=== PATIENT | female | born 1945 | race Caucasian/White ===

== ENCOUNTER → 2018-07-11 11:54 | Outpatient (CLI) | payer MEDICARE, SELFPAY ==
--- NOTE | 2018-07-11 11:58 | BI_ITS ---
MAMMOGRAPHY - BILATERAL SCREENING REASON FOR EXAM: Female, 72 years old. Routine annual screening examination. PERTINENT HISTORY: Non-contributory. Remote left breast aspiration. TECHNIQUE: Digital bilateral breast lynn (3D mammographic acquisition) in the CC and MLO projections. 2-D mediolateral oblique (MLO) and craniocaudad (CC) views of both breasts were obtained. CAD: Full Field Digital Mammography with Computer Added Detection was performed. COMPARISON: Comparison is made with prior study dated June 05, 2017 and May 08, 2016. FINDINGS: Breast Composition: The breasts are heterogeneously dense, which may obscure small masses. There are no dominant masses or suspicious calcifications. Scattered bilateral microcalcifications. Stable bilateral benign-appearing axillary lymph nodes. No other significant abnormalities are identified. There has been no significant change since the prior study. BI/SCREENING MAMM (CAD), BILAT IMPRESSION: Stable bilateral screening mammogram. Yearly follow-up mammogram recommended. (A) ASSESSMENT CATEGORY: BIRADS Category 2: Benign. A letter regarding these results will be sent to the patient by the facility within 30 days. Approximately 10% of breast cancers are not detected by mammography. A normal mammogram should not delay biopsy of a clinically suspicious abnormality. [id number] Electronically Signed: Angelo Lonoey MD at 14:22 EST Tel [phone], Service support ,
== END ==
PROVIDERS: Family Provider Internal Medicine; PCP Internal Medicine; Referring Provider Internal Medicine; Visit Provider Internal Medicine
DX: Z12.31 Encounter for screening mammogram for malignant neoplasm of breast (principal)
CPT/HCPCS: 77063; 77067

== ENCOUNTER → 2018-07-30 12:21 | Outpatient (CLI) | payer SELFPAY ==
--- NOTE | 2018-07-30 12:25 | CT_ITS ---
STUDY: CT CHEST WITHOUT CONTRAST REASON FOR EXAM: Female, 72 years old. Calcium scoring examination. Hyperlipidemia. This is a radiological over read examination. RADIATION DOSAGE (If Supplied By Facility): CTDIvol = ( 12.19 ) mGy, DLP = ( 195.04 ) mGycm TECHNIQUE: Transaxial imaging was performed without the administration of intravenous contrast material. Individualized dose optimization techniques were used for this CT. COMPARISON: None. FINDINGS: Mild degree of emphysematous changes. There is no demonstrated pleural abnormality. There are calcifications of the coronary arteries. There are multiple small lymph nodes within the mediastinum, which are normal in size and morphology most compatible with reactive lymph hyperplasia. Normal hilar regions. Normal unenhanced pulmonary arteries. There is atherosclerotic calcification of the aortic arch and descending thoracic aorta. There are mild degenerative changes of the thoracic spine. There is no demonstrated abnormality of the visualized upper abdomen. CT/CCTA Calcium Scoring IMPRESSION: Coronary artery calcification. No acute abnormality is seen. Electronically Signed: Angelo Looney MD at 8:48 EST , Service support ,
--- NOTE | 2018-07-30 12:25 | CT_ITS ---
STUDY: CT CHEST WITHOUT CONTRAST REASON FOR EXAM: Female, 72 years old. Calcium scoring examination. Hyperlipidemia. This is a radiological over read examination. RADIATION DOSAGE (If Supplied By Facility): CTDIvol = ( 12.19 ) mGy, DLP = ( 195.04 ) mGycm TECHNIQUE: Transaxial imaging was performed without the administration of intravenous contrast material. Individualized dose optimization techniques were used for this CT. COMPARISON: None. FINDINGS: Mild degree of emphysematous changes. There is no demonstrated pleural abnormality. There are calcifications of the coronary arteries. There are multiple small lymph nodes within the mediastinum, which are normal in size and morphology most compatible with reactive lymph hyperplasia. Normal hilar regions. Normal unenhanced pulmonary arteries. There is atherosclerotic calcification of the aortic arch and descending thoracic aorta. There are mild degenerative changes of the thoracic spine. There is no demonstrated abnormality of the visualized upper abdomen. CT/Limited Chest CT w/CCTA IMPRESSION: Coronary artery calcification. No acute abnormality is seen. Electronically Signed: Angelo Looney MD at 8:48 EST , Service support ,
--- NOTE | 2018-07-30 13:00 | CA.SCORE ---
Calcium Scoring Date of Study:: 07/30/18 Coronary Calcium Scoring: Coronary calcium scoring. High-resolution computed tomographic imaging of the chest was performed on 07/30/2018 with particular attention paid to the coronary arteries. Images from the examination were analyzed for the presence and extent of coronary artery calcification using coronary calcification quantification software. The patient tolerated the procedure well and there were no complications. The results of the coronary calcification analysis are provided below. Coronary artery Left main 72.3. Left anterior descending artery 0 Left circumflex artery 83.4 Right coronary artery 0 Total Agagston score 156 The above [address] the patient between the 50th and 75th percentile ranking for age-matched controls. It is suggestive of moderate nonobstructive coronary disease likely.
== END ==
PROVIDERS: Family Provider Internal Medicine; PCP Internal Medicine; Referring Provider Internal Medicine; Visit Provider Internal Medicine
DX: E78.00 Pure hypercholesterolemia, unspecified (principal)
CPT/HCPCS: 75571; 76380

== ENCOUNTER 2018-08-23 12:36 | Emergency (ER) | payer MEDICARE, SELFPAY ==
[2018-08-23 12:38] VITALS: BP 211/89; PULSE 73; RESP 17; TEMP 36.4; O2SAT 99; BMI 29.4
[2018-08-23 12:45] VITALS: BP 209/74
[2018-08-23 12:50] LABS: Bedside Glucose 147 mg/dL (70-110)
--- NOTE | 2018-08-23 13:06 | EKG12_ITS ---
Test Reason : NEURO S/SX Blood Pressure : / mmHG Vent. Rate : 067 BPM Atrial Rate : 067 BPM P-R Int : 160 ms QRS Dur : 102 ms QT Int : 408 ms P-R-T Axes : 021 000 063 degrees QTc Int : 431 ms Sinus rhythm with Premature supraventricular complexes Left ventricular hypertrophy with repolarization abnormality Abnormal ECG Confirmed by MELI WHEATLEY, OPAL ([id number]), book editor PATRICIO MOSLEY ([id number]) on 08/26/2018 4:50:23 PM Referred By: RUDOLPH/KALLIE Confirmed By:OPAL GARRISON MD
[2018-08-23 13:37] LABS: Absolute Lymphocyte Count 1.24 X10^3/ul (0.83-4.51); Absolute Neutrophil Count 3.8 X10^3/uL (2.0-7.7); Basophil# 0.06 X10^3/uL; Basophil% 0.9 % (0-1); Eosinophil# 0.64 X10^3/uL; Hematocrit 39.8 % (37-47); Hemoglobin 13.1 g/dl (12.0-15.0); Lymphocyte # 1.24 X10^3/ul (4.0); Lymphocyte % 19.3 % (19-41); Mean Corp Hgb Conc 32.9 g/gl (32-36); Mean Corpuscular Hgb 29.7 pg (27.0-32.0); Mean Corpuscular Volume 90.2 fL (81-99); Mean Platelet Vol. 9.8 fl (6.2-12.0); Monocyte# 0.71 X10^3/uL; Monocyte% 11.1 % (0-10); Neutrophil # 3.76 X10^3/uL (2.7-7.7); Neutrophil % 58.5 % (47-70); POSITIVE COUNT NO; POSITIVE DIFFERENTIAL NO; POSITIVE MORPHOLOGY NO; Platelet Count 306 K/mm3 (150-450); RBC Distribution Width CV 13.3 % (11.6-14.6); RBC Distribution Width SD 43.7 fl (35.1-43.9); Red Blood Count 4.41 M/mm3 (4.2-5.4); White Blood Count 6.4 K/mm3 (4.4-11.0)
[2018-08-23 13:38] LABS: Anion Gap 8 (5-15); BUN 13 mg/dL (7-18); BUN/Creat Ratio 12.1 RATIO (10-20); Calcium,Total 8.9 mg/dL (8.5-10.1); Chloride 100 mmol/L (98-107); Creatinine, Serum 1.07 mg/dL (0.55-1.02); EST Glomerular Filtration Rate 54 mL/min (>60); Est Glom Filt Rate - Afr Amer 65 mL/min (>60); Estimated Creatinine Clearance 43.39 ml/min; Glucose 135 mg/dL (74-106); Potassium 3.4 mmol/L (3.5-5.1); Sodium Level 133 mmol/L (136-145)
[2018-08-23 13:43] VITALS: BP 158/99; PULSE 61; RESP 17; O2SAT 99
--- NOTE | 2018-08-23 14:54 | ED.DCSUM_ITS ---
- ER Visit Summary Date of Service: 08/23/18 Chief Complaint: Paresthesias History of Present Illness: The patient is a 72 F who states that about 20 minutes prior to arrival she was sitting in a car drinking a pop consisting of diet and regular pop when she felt like her tongue began to feel like it was nu mb. She states that then she developed symptoms similar to being anesthetized at the dentist along the bilateral jawline. Then her bilateral arms began to feel heavy. She states that since arriving here in the department she is feeling better. Denies any fever she denies any visual changes. She denies any headache or weakness. Recently diagnosed with UTI this week and started on Macrobid and then was changed to Cipro. She states that she is on day 3 of the Cipro. She notes that she is on lisinopril. She denies any swelling of the lips or tongue. No dysarthria noted by . Physical Examination: Afebrile noted hypertension of 209/74 Gen: Well-nourished well-developed Head: Normocephalic atraumatic Eyes: Perrl EOMI ENT: TMs clear no rhinorrhea moist mucous membranes Neck: Supple no lymphadenopathy no JVD nontender CVS: Regular rate rhythm no murmurs normal S1-S2 Respiratory: No distress clear to auscultation bilaterally chest nontender Abdomen: Soft nontender nondistended normal bowel sounds no masses Back: Nontender Extremity: Nontender no edema Skin: Normal color no rash Neuro: alert orientated ?3 CN II-XII intact normal strength sensation reflexes gait cerebellar Psych: Normal affect normal mood Test Results: CBC and BMP were essentially negative. Emergency Department Course and Treatment: Patient was observed in the department. Her blood pressure is steadily come down currently 154/79. Her symptoms are resolved. This could possibly been hypertensive related. We talked about the possibility of lisinopril induced angioedema though at this time she has no swelling. She will follow-up with her doctor return if worsening or concerns. Impression: 1. Facial paresthesias 2. Hypertension This note was generated with [employer] dictation software. It may contain incorrect words, spelling, and punctuation that were not noted in review of the chart prior to signing ED Disposition - Plan for ED Patient: Disposition: Home or Assisted Living Instructions: ED Paraesthesias Referrals: Bonezzi,Aleena, MD [Primary Care Provider] - 3-5 Days Additional Instructions: Please monitor your blood pressure. Monitor for any lip or tongue swelling Return if worsening or concerns.
[2018-08-23 15:04] VITALS: BP 159/71; PULSE 74; RESP 16; O2SAT 98
== END 2018-08-23 15:04 | disposition home or self-care (01) ==
PROVIDERS: Emergency Provider Emergency Medicine; Family Provider Internal Medicine; PCP Internal Medicine
DX: R20.2 Paresthesia of skin (principal); I10 Essential (primary) hypertension
CPT/HCPCS: 80048; 82962; 85025; 93005; 99284; A4216

== ENCOUNTER → 2018-09-02 09:52 | Outpatient (CLI) | payer MEDICARE, SELFPAY ==
[2018-08-23 12:38] VITALS: BMI 29.4
--- NOTE | 2018-09-02 09:58 | RDU_ITS ---
Reason For Study: HYPERTENSION Right Renal Artery Left Renal Artery Right renal artery ostium 144/31.8 Left renal artery ostium 116.0/20.1 RSV/EDV. PSV/EDV. Right renal artery proximal Left renal artery proximal PSV/EDV 122/32.0 PSV/EDV. 138.0/29.2 . Right renal artery mid 137.0/27.9 Left renal artery mid 125.0/21.0 PSV/EDV. PSV/EDV . Right renal artery distal Left renal artery distal 107.0/23.2 118.0/32.8 PSV/EDV. PSV/EDV. Right RAR 1.9. Left RAR 1.8. Right Renal Parenchyma Left Renal Parenchyma Upper Pole Medula 37.4/11.4 Left upper pole medulla 39.2/10.0 PSV/EDV. PSV/EDV . Right upper pole medulla EDR .30 . Left upper pole medulla EDR .26 . Right upper pole medulla R.I. .70 . Left upper pole medulla R.I. .74 . Upper Jeffrey Cortx 24.8/7.0 PSV/EDV. UP Cortex 23.7/7.8 PSV/EDV. Right upper pole cortex EDR .28 . Left upper pole cortex EDR .33 . Right upper pole cortex R.I. .72 . Left upper pole cortex R.I. .67 . Right lower Pole medulla 35.4/9.5 Left lower Pole medulla 38.8/11.9 PSV/EDV . PSV/EDV . Right lower pole medulla EDR .27 . Left lower pole medulla EDR .31 . Right lower pole medulla R.I. .73 . Left lower pole medulla R.I. .69 . Lower Pole Cortex 18.0/6.1 PSV/EDV. Lower Pole Cortx 27.4/9.1 PSV/EDV. Right lower pole cortex EDR .34 . Left lower pole cortex EDR .33 . Right lower pole cortex R.I. .66 . Left lower pole cortex R.I. .67 . Right Renal Hilar Left Renal Hilar Right Hilar avg 62.9/14.6 PSV/EDV. LT Hilar avg 70.7/13.2 PSV/EDV . Right hilar acceleration time 66 Left hilar acceleration time 51 m/sec. m/sec. Right Renal Dimensions Left Renal Dimensions Right kidney size 10.0 cm . Left kidney size 10.5 cm . Right cortical dimension 1.5 cm . Left cortical dimension 1.5 cm . Aorta Proximal abdominal aorta 1.7 X 1.6 cm . Distal abdominal aorta 1.3 X 1.3 cm . Proximal abdominal aorta peak systolic velocity is 75.7 cm/sec . Distal abdominal aorta peak systolic velocity is 71.1 cm/sec . Interpretation Summary Dimensions of the intra-abdominal aorta appear normal, without evidence of aneurysmal dilatation. Renal artery velocities are bilaterally normal. Acceleration times are normal bilaterally. Renal- aortic ratios are also bilaterally normal. There is no evidence of hemodynamically significant renal artery stenosis on either side. Cortical dimensions are bilaterally normal. Kidneys appear normal in size bilaterally. Ordering Physician: Aleena Barreto Referring Physician: Aleena Barreto Performed By: Dolly Gonzalez RVT
== END ==
PROVIDERS: Family Provider Internal Medicine; PCP Internal Medicine; Referring Provider Internal Medicine; Visit Provider Internal Medicine
DX: I10 Essential (primary) hypertension (principal)
CPT/HCPCS: 93975

== ENCOUNTER → 2019-05-22 11:34 | Outpatient (CLI) | payer MEDICARE, SELFPAY ==
--- NOTE | 2019-05-22 11:37 | RAD_ITS ---
STUDY: X-RAY - PELVIS AND BILATERAL HIPS REASON FOR EXAM: Female, 73 years old. Bilateral hip pain. TECHNIQUE: AP view of the pelvis.? 2 views of the right hip, and 2 views of the left hip were obtained. COMPARISON: None. FINDINGS: There is a non-specific bowel gas pattern. Normal visualized soft tissue structures. There is narrowing with cortical sclerosis and osteophyte formation of the sacroiliac joint consistent with mild degenerative osteoarthritic changes. Normal bilateral superior and inferior pubic rami. There are degenerative changes of the pubic symphysis with articular narrowing and sclerosis. Normal bilateral ischial tuberosities. There are mild osteoarthritic changes of the right femoral head with marginal osteophyte formation. There is osteoarthritic spur formation of the right acetabular rim. There is moderate articular joint space narrowing of the right hip. There are osteoarthritic changes of the left femoral head with marginal osteophyte formation. There is osteoarthritic spur formation of the left acetabular rim. There is moderate articular joint space narrowing of the left hip. RAD/Hips B/L min 2 views w/ Pelvis IMPRESSION: Multilevel degenerative disease as described above with no acute fracture or subluxation. Electronically Signed: Mabel Gonzales MD at 6:47 EST , Service support ,
== END ==
PROVIDERS: Family Provider Internal Medicine; PCP Internal Medicine; Referring Provider Internal Medicine; Visit Provider Internal Medicine
DX: M25.551 Pain in right hip (principal)
CPT/HCPCS: 73521

== ENCOUNTER → 2019-06-19 10:57 | Outpatient (CLI) | payer MEDICARE, SELFPAY ==
--- NOTE | 2019-06-19 11:02 | RAD_ITS ---
STUDY: X-RAY - ABDOMEN/PELVIS REASON FOR EXAM: Female, 73 years old. RUQ PAIN, CONSTIPATION TECHNIQUE: Single AP view of the abdomen / pelvis. COMPARISON: None. FINDINGS: Excluded lung bases. No dilated loops of air-filled small bowel. Mild fecal retention of the right and transverse colon. There is no demonstrated free abdominal air. The visualized liver, spleen and kidneys are grossly normal in size and morphology. Normal soft tissue structures. There mild degenerative changes of the hips. RAD/Abdomen Single View IMPRESSION: 1. Nonobstructive bowel gas pattern. 2. Mild fecal retention of the proximal colon. 3. Degenerative changes of the bilateral hips. Electronically Signed: Vineet Escobar MD (Brooks) at 12:04 EST , Service support ,
[2019-06-19 11:57] LABS: Absolute Neutrophil Count 4.4 X10^3/uL (2.0-7.7); Basophil# 0.05 X10^3/uL; Basophil% 0.7 % (0-1); Eosinophil# 0.23 X10^3/uL; Eosinophils% 3.3 % (0-5); Hematocrit 38.8 % (37-47); Lymphocyte % 25.8 % (19-41); Mean Corp Hgb Conc 33.5 g/dL (32-36); Mean Corpuscular Hgb 30.4 pg (27.0-32.0); Mean Corpuscular Volume 90.9 fL (81-99); Mean Platelet Vol. 9.8 fl (6.2-12.0); Monocyte# 0.53 X10^3/uL; Monocyte% 7.6 % (0-10); NRBC Flagged by Analyzer 0 % (0-5); Neutrophil # 4.36 X10^3/uL (2.7-7.7); Neutrophil % 62.3 % (47-70); Platelet Count 318 K/mm3 (150-450); RBC Distribution Width CV 12.6 % (11.6-14.6); RBC Distribution Width SD 41.9 fl (35.1-43.9); Red Blood Count 4.27 M/mm3 (4.2-5.4)
[2019-06-19 12:20] LABS: ALB/GLOB Ratio 1.1 RATIO (0.9-2.4); AST(SGOT) 20 U/L (15-37); Alanine Aminotransfer ALT/SGPT 19 U/L (13-56); Albumin, Serum 3.8 g/dL (3.2-5.0); Alkaline Phosphatase 107 U/L (45-117); Amylase 79 U/L (25-115); Anion Gap 5 (5-15); BUN 16 mg/dL (7-18); BUN/Creat Ratio 15.8 RATIO (10-20); Calcium,Total 9.2 mg/dL (8.5-10.1); Chloride 104 mmol/L (98-107); Creatinine, Serum 1.01 mg/dL (0.55-1.02); EST Glomerular Filtration Rate 57 mL/min (>60); Est Glom Filt Rate - Afr Amer 69 mL/min (>60); Globulin 3.5 g/dL (2.2-4.2); Glucose 101 mg/dL (74-106); Lipase 129 U/L (73-393); Potassium 4.2 mmol/L (3.5-5.1); Protein, Total 7.3 g/dL (6.4-8.2); Sodium Level 138 mmol/L (136-145)
== END ==
PROVIDERS: Family Provider Internal Medicine; PCP Internal Medicine; Referring Provider Internal Medicine; Visit Provider Internal Medicine
DX: R10.11 Right upper quadrant pain (principal)
CPT/HCPCS: 74018; 80053; 82150; 83690; 85025

== ENCOUNTER → 2019-07-14 10:24 | Outpatient (CLI) | payer MEDICARE, SELFPAY ==
--- NOTE | 2019-07-14 10:29 | BI_ITS ---
MAMMOGRAPHY - BILATERAL SCREENING REASON FOR EXAM: Female, 73 years old. Routine annual screening examination. PERTINENT HISTORY: Non-contributory. TECHNIQUE: Digital bilateral breast betty (3D mammographic acquisition) in the CC and MLO projections. 2-D mediolateral oblique (MLO) and craniocaudad (CC) views of both breasts were obtained. CAD: Full Field Digital Mammography with Computer Added Detection was performed. COMPARISON: Comparison is made with prior study dated July 11, 2018 and June 05, 2017. FINDINGS: Breast Composition: The breasts are heterogeneously dense, which may obscure small masses. There are no dominant masses or suspicious calcifications. Stable bilateral scattered calcifications. Stable benign appearing bilateral axillary lymph nodes. No other significant abnormalities are identified. There has been no significant change since the prior study. BI/SCREEN MAMM (CAD) W/BETTY BILAT IMPRESSION: Stable bilateral screening mammogram. Yearly follow-up mammogram recommended. (A) ASSESSMENT CATEGORY: BIRADS Category 2: Benign. A letter regarding these results will be sent to the patient by the facility within 30 days. Approximately 10% of breast cancers are not detected by mammography. A normal mammogram should not delay biopsy of a clinically suspicious abnormality. [id number] Electronically Signed: Angelo Looney, at 12:32 EST , Service support ,
--- NOTE | 2019-07-14 10:31 | BD_ITS ---
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 COMPARISON: Comparison is made with prior examination dated December 13, 2016. FINDINGS: Lumbar Spine (L1-L4): g/cm2 (0.973) / T-score (-1.6) / Z-score (0.1) Findings are suggestive of osteopenia with a moderate fracture risk. Left Femur Total: g/cm2 (0.791) / T-score (-1.7) / Z-score (-0.1) Left Femoral Neck: g/cm2 (0.796) / T-score (-1.7) / Z-score (0.1) Right Femur Total: g/cm2 (0.842) / T-score (-1.3) / Z-score (0.3) Right Femoral Neck: g/cm2 (0.881) / T-score (-1.1) / Z-score (0.7) The T-Scores on the most recent prior examination were: Lumbar Spine (L1-L4): There has been worsening of bone density since the previous examination. Left Femur Total: which represents a worsening of 4.4%. Right Femur Total: which represents a worsening of 1.5%. BD/Dexa Bone Density Study IMPRESSION: The patient is considered osteopenic as outlined below according to World [employer] Organization (WHO) criteria with a moderate fracture risk. There has been worsening of bone density since the previous examination. Reference Information: The T-score is the number of standard deviations above or below the standard which is normal for young adults at their peak bone mineral density. The World Health Organization (WHO) interprets the T-scores as follows: Above -1 Normal bone density Between -1 and -2.5 Osteopenia Equal to / or below -2.5 Osteoporosis As a practical clinical guideline, osteopenia may be graded as follows: Mild -1 through -1.5 Moderate -1.6 through -2.0 Severe -2.1 through -2.4 The Z-score is the number of standard deviations above or below age-matched controls. A Z-score of less than -1.5 would be considered abnormal. References: 1. NIH Osteoporosis and Related Bone Diseases http://www.osteo.org 2. International Society for Clinical Densitometry http://www.iscd.org 3. National Osteoporosis Foundation http://www.nof.org Electronically Signed: Angelo Looney, at 10:39 EST , Service support ,
== END ==
PROVIDERS: Family Provider Internal Medicine; PCP Internal Medicine; Referring Provider Internal Medicine; Visit Provider Internal Medicine
DX: Z12.31 Encounter for screening mammogram for malignant neoplasm of breast (principal); Z78.0 Asymptomatic menopausal state
CPT/HCPCS: 77063; 77067; 77080

== ENCOUNTER 2020-02-24 05:52 | Day surgery (SDC) | payer MEDICARE, SELFPAY ==
[2020-02-24 06:24] VITALS: BP 159/73; PULSE 63; RESP 16; TEMP 37; O2SAT 97; BMI 30.4
--- NOTE | 2020-02-24 07:20 | OP.PCM_ITS ---
Report of Operation Date of Procedure: 02/24/20 Pre-Operative Diagnosis: Left hip osteoarthritis Post-Operative Diagnosis: Left hip osteoarthritis Surgery/Procedure Performed:: Left fluoroscopic guided intra-articular hip injection Description of Surgical Findings:: Intra-articular dye, good back pressure with synovial fluid tear down matcher: None Type of Anesthesia:: Local Special Medications: 2 mL of Kenalog, 3 mL of bupivacaine Estimated Blood Loss (mL): 0 Description of Procedure: After marking the left hip in the preoperative area. Patient was brought back to the operating room she was placed on the radiolucent table. X-ray was able to find position of the hip under fluoroscopy. Starting point was verified. Pulse was verified. Area was prepped with chlorhexidine and draped out sterilely. 3 mL of 1% lidocaine were given for topical anesthetic. 20-gauge needle was used to find the starting point under fluoroscopy. Needle was advanced to the joint. Small amount of dye was placed in the joint to verify intra-articular position. Once was done 2 mL of Kenalog and 3 mL of 0.5% bupivacaine were injected into the joint with good back pressure. Spinal needle was removed from the joint pressure was held and Band-Aid was placed. Patient was transferred back to the recovery room for discharge home. Patient can resume activities as tolerated. - Complications None - Admit VTE Documentation VTE Present on Admission: No VTE Mechan Device Prophylaxis: None VTE Pharm Prophylaxis ordered?: No Reason prophylaxis not ordered:: Treatment Not Indicated
[2020-02-24] MEDS: Triamcinolone Acetonide 40 MG/ML Vial (07:22)
[2020-02-24] MEDS: Bupivacaine Mpf 0.5% 30 ML VIAL (07:22)
[2020-02-24 08:00] VITALS: BP 151/70; PULSE 64; RESP 16; TEMP 36.1; O2SAT 97
== END 2020-02-24 08:02 | disposition home or self-care (01) ==
LOC: SDC 05:53 → AC 05:54
PROVIDERS: PCP Internal Medicine; Referring Provider Specialist; Visit Provider Specialist
PROC: (CPT 27570; principal; 2020-02-24 07:10)
DX: M16.12 Unilateral primary osteoarthritis, left hip (principal); I10 Essential (primary) hypertension; M81.0 Age-related osteoporosis without current pathological fracture; E66.8 Other obesity; Z68.30 Body mass index [BMI] 30.0-30.9, adult
CPT/HCPCS: 20610; 76000; J7120

== ENCOUNTER → 2020-06-06 10:11 | Outpatient (CLI) | payer MEDICARE, SELFPAY ==
--- NOTE | 2020-06-06 10:13 | US_ITS ---
STUDY: RENAL ULTRASOUND - COMPLETE REASON FOR EXAM: Female, 74 years old. UTI TECHNIQUE: Ultrasound evaluation of the kidneys was performed with real-time and static king-scale imaging. COMPARISON: None. FINDINGS: RIGHT KIDNEY: Normal location of the right kidney, which is normal in size. The right kidney measures 9.9 cm x 4.6 cm x 3.9 cm. There is a normal cortex of the right kidney. The renal cortex measures 1.0 cm. There is no right renal mass or cyst. There are no right renal calculi. There is no right hydronephrosis. DISTAL RIGHT URETER: There is non-visualization of the distal right ureter. There is no demonstrated right ureterovesical junction calculus. There is a visualized right ureteral jet. LEFT KIDNEY: Normal location of the left kidney, which is normal in size. The left kidney measures 10.6 cm x 3.9 cm x 5.2 cm. There is a normal cortex of the left kidney. The renal cortex measures 1.6 cm. There is no left renal mass or cyst. There are no left renal calculi. There is no left hydronephrosis. DISTAL LEFT URETER: There is non-visualization of the distal left ureter. There is no demonstrated left ureterovesical junction calculus. There is a visualized left ureteral jet. BLADDER: The distended urinary bladder has a volume of 31.6 ml. There is a normal wall thickness of the distended urinary bladder. There is no demonstrated mass within the urinary bladder. There are no demonstrated bladder calculi. US/Kidney and Bladder IMPRESSION: Normal ultrasound of the kidneys and urinary bladder. Electronically Signed: Angelo Looney, at 13:48 EST , Service support ,
== END ==
PROVIDERS: PCP Internal Medicine; Referring Provider Urology; Visit Provider Urology
DX: N39.0 Urinary tract infection, site not specified (principal)
CPT/HCPCS: 76770

== ENCOUNTER → 2020-07-15 08:36 | Outpatient (CLI) | payer MEDICARE, SELFPAY ==
--- NOTE | 2020-07-15 08:37 | BI_ITS ---
MAMMOGRAPHY - BILATERAL SCREENING REASON FOR EXAM: Female, 74 years old. Routine annual screening examination. PERTINENT HISTORY: Non-contributory. TECHNIQUE: Digital bilateral breast betty (3D mammographic acquisition) in the CC and MLO projections. 2-D mediolateral oblique (MLO) and craniocaudad (CC) views of both breasts were obtained. CAD: Full Field Digital Mammography with Computer Added Detection was performed. COMPARISON: Comparison is made with prior examination dated 01/12/2020 and 07/11/2018. FINDINGS: Breast Composition: The breasts are heterogeneously dense, which may obscure small masses. There are no dominant masses or suspicious calcifications. Stable bilateral scattered calcifications. Stable benign appearing bilateral axillary lymph nodes. No other significant abnormalities are identified. There has been no significant change since the prior study. BI/SCRN MAMM (CAD)W/BETTY BILAT IMPRESSION: Stable bilateral screening mammogram. Yearly follow-up mammogram recommended. (A) ASSESSMENT CATEGORY: BIRADS Category 2: Benign. A letter regarding these results will be sent to the patient by the facility within 30 days. Approximately 10% of breast cancers are not detected by mammography. A normal mammogram should not delay biopsy of a clinically suspicious abnormality. [id number] Electronically Signed: Angelo Looney, at 10:23 EST , Service support ,
== END ==
PROVIDERS: PCP Internal Medicine; Referring Provider Internal Medicine; Visit Provider Internal Medicine
DX: Z12.31 Encounter for screening mammogram for malignant neoplasm of breast (principal)
CPT/HCPCS: 77063; 77067

== ENCOUNTER → 2020-07-20 10:10 | Outpatient (CLI) | payer MEDICARE, SELFPAY | PROVIDERS: PCP Internal Medicine; Referring Provider Specialist; Visit Provider Specialist | DX: Z11.59 Encounter for screening for other viral diseases (principal) | CPT/HCPCS: 87635; C9803; U0005; U0003 ==

== ENCOUNTER 2020-07-28 17:03 | Observation (INO) | payer MEDICARE, SELFPAY ==
[2020-07-28] VITALS (7 sets, daily range): BP systolic 140–155; BP diastolic 63–99; PULSE 68–103; RESP 16–17; TEMP 36.1–36.9; O2SAT 96–100; BMI 32.4
--- NOTE | 2020-07-28 15:45 | CON.PCM_ITS ---
Problem List (1) NSVT (nonsustained ventricular tachycardia) Status: Acute (2) HTN (hypertension) Status: Chronic (3) Hypothyroidism Status: Acute (4) H/O: hysterectomy Status: Acute (5) Right hip arthroplasty Status: Acute (6) Osteoporosis Status: Chronic Reason for Consult Date of Consultation: 07/28/20 Reason for Consultation: NSVT with ST congestion or V. tach during surgery History of Present Illness: The patient is a 74 year old F with history of hypertension, hypothyroidism was sent from the [facility] center when the patient developed short run of V. tach most probably NSVT after neuromuscular reversal was initiated around 10 AM today. As per EKG tracing in the document it seems patient had 8.4 seconds of NSVT. After short run of NSVT, monitor showed sinus rhythm in fifties. There were some ST changes also noted in lead II. Patient was stable during extubation. As per report per documentation, it seems patient also got metoprolol 2 mg IV and nitroglycerin IV. BP was 107/47. Patient denied chest pain or pressure, jaw pain. banquet server showed PACs and PVCs. Subsequently patient was transferred and directly admitted in PCU. When I saw the patient, she denies chest pain/pressure, dizziness, near-syncope or syncope. No palpitation. She states couple times in a month, she feels palpitations/irregular heartbeat when she goes to bed. She denies exertional angina, dyspnea, syncope or prior history of cardiac cath. As per [facility] record, she had echo in October 2012 showed EF 55% with normal LV size and systolic function. Mild TR. Twelve-lead EKG done here shows normal sinus rhythm, QTC 431 ms, QRS 98 ms. On administrative underwriter shows PVCs pulsus bigeminy. Past Medical History Past Medical History (Chronic Problems): Chronic Problems HTN (hypertension) (Chronic) Osteoporosis (Chronic) Allergies amoxicillin Allergy (Verified 08/23/18 12:43) Unknown erythromycin base Allergy (Verified 08/23/18 12:43) Unknown sulfamethoxazole [From Bactrim] Allergy (Verified 08/23/18 12:43) Unknown trimethoprim [From Bactrim] Allergy (Verified 08/23/18 12:43) Unknown Home Medications: Ambulatory Orders Medication Instructions Recorded Amitriptyline HCl 25 mg PO QHS PRN 08/23/18 Atorvastatin Calcium [Lipitor] 10 mg PO QHS 08/23/18 Levothyroxine Sodium [Synthroid] 1 tab PO DAILY 08/23/18 Lisinopril 20 mg PO BID 08/23/18 Metoprolol(XL)Succ [Toprol Xl 100 mg PO DAILY 08/23/18 (Beta Kailee)] Amlodipine [Norvasc] 5 mg PO DAILY 07/28/20 Aspirin E.C. [Ecotrin] 81 mg PO DAILY@0800 07/28/20 Smoking Status: Never smoker - *Family History Paternal History Items: Hypertension Maternal History Items: Dementia - Mom was healthy and of Alzheimer's dementia in her eighties Review of Systems Constitutional: Denies: Chills, Fever, Weight Change HEENT: Denies: Head Aches, Sinus Congestion, Sinus Drainage Cardiovascular: Denies: Chest Pain, Claudication, Chest Pressure, Chest Tightness, Edema, Palpitations Respiratory: Denies: Cough, Shortness of breath at rest, Sputum production Gastrointestinal: Denies: Abdominal Pain, Nausea, Vomiting Genitourinary: Denies: Dysuria Musculoskeletal: Reports: Joint Pain, Joint stiffness, Joint swelling. Denies: Joint Tenderness Skin: Denies: Rash, Wounds Neurological: Denies: Numbness, Tingling, Focal weakness Psychiatric: Denies: Anxiety, Depression, Homicidal Ideations, Suicidal Ideations Hematologic/ Lymphatic: Denies: Easy Bruising, Easy Bleeding Patient Problems: Active and Suspected Problems NSVT (nonsustained ventricular tachycardia) (Acute) Hypothyroidism (Acute) H/O: hysterectomy (Acute) Right hip arthroplasty (Acute) Objective: Physical exam General: Alert, Oriented x3, Cooperative HEENT: Atraumatic, PERRLA, EOMI, Normocephalic Oral: No Gingival or Mucosal Lesions/ Ulcerations Neck: Supple, No JVD, Negative Carotid Bruits Lungs: Air entry diminished in bilateral lung bases. No crepitation/rhonchi Cardiovascular: PVCs on administrative underwriter. Regular rate, Regular Rhythm, Normal S1, Normal S2, No murmurs Abdomen: Bowel Sounds Present, Soft, Non Tender, Non-Distended : No renal angle tenderness. No suprapubic tenderness. Extremities: No edema, Capillary Refill Less than 3 Seconds Skin: No rashes, No breakdown Musculoskeletal: No Tenderness to Palpation of Joints or Extremities Neurological: Cranial nerves II-XII grossly intact, Deep Tendon Reflexes 2+/4 and Symmetrical, Neuro grossly intact Psych/Mental Status: Normal Affect, Appropriate. - Physical Exam Vitals/I&O's: Vital Signs Temp Pulse Resp BP Pulse Ox 96.9 F L 68 16 150/69 H 100 07/28/20 14:39 07/28/20 14:39 07/28/20 14:39 07/28/20 14:39 07/28/20 14:39 Oxygen Flow Rate (L/min) 2 Oxygen Delivery Method Nasal Cannula Weight: 195 lb Body Mass Index (BMI) 32.4 Finger Stick Blood Glucose 147 Current Medications Sodium Chloride (0.9% Saline Lock 10 Ml Syringe) 10 - 40 ml IV UD PRN PRN Reason: SALINE FLUSH Assessment/Plan All Active Problems NSVT (nonsustained ventricular tachycardia) (Acute) Hypothyroidism (Acute) H/O: hysterectomy (Acute) Right hip arthroplasty (Acute) This is a 74-year-old female who was directly admitted in PCU from [facility] [place] after she developed NSVT and ST-T changes on administrative underwriter after neuromuscular reversal. Twelve-lead EKG done here shows normal sinus rhythm, QTC 431 ms, QRS 98 ms. On administrative underwriter shows PVCs pulsus bigeminy. 1. NSVT no prior history of cardiac disease: Patient is being admitted for the PCU on administrative underwriter. Watch for arrhythmia. Serial troponin enzymes. 2D echo ordered. Patient on metoprolol succinate 100 mg daily and lisinopril 20 mg twice daily with holding parameters for heart rate and blood pressure. If patient gets prolonged NSVT or V. tach, will need cardiology consult. Currently, patient is asymptomatic. CBC, CMP, magnesium, phosphorus is ordered 2. Hypertension: BP is 150/69. Heart rate 68/min, normal sinus rhythm. 3. Hypothyroidism: TSH and free T4 tomorrow a.m. 4. Dyslipidemia: On atorvastatin 20 mg daily. Fasting profile tomorrow a.m. 5. Right hip anterior total arthroplasty: Patient on aspirin 81 mg twice daily for DVT prophylaxis. PT and OT is ordered. Patient on pain medications as per primary orthopedic service. Inpatient E&M: 68261 Init Hosp L3
--- NOTE | 2020-07-28 15:58 | EKG12_ITS ---
Test Reason : ADMITT Blood Pressure : / mmHG Vent. Rate : 066 BPM Atrial Rate : 066 BPM P-R Int : 144 ms QRS Dur : 098 ms QT Int : 412 ms P-R-T Axes : 022 -04 042 degrees QTc Int : 431 ms Normal sinus rhythm Normal ECG When compared with ECG of 23-AUG-2018 12:43, Premature supraventricular complexes are no longer Present Confirmed by MELI WHEATLEY, OPAL ([id number]), script editor GENIE CALLOWAY ([id number]) on 08/02/2020 8:47:39 AM Referred By: PATRICIA Confirmed By:OPAL GARRISON MD
--- NOTE | 2020-07-28 16:48 | ECHOCS_ITS ---
Reason For Study: NSVT Procedure This was a 2D Doppler, Color Flow transthoracic echocardiogram. The study was technically difficult. Contrast injection was performed. Exam performed portable in patient room. Left Ventricle Normal LV size. The estimated ejection fraction is 65 %. No evidence for diastolic dysfunction. No regional wall motion abnormalities noted. Right Ventricle Normal RV size. Normal systolic function. Atria Normal left atrium. Normal right atrium. No doppler evidence for ASD. Mitral Valve Mild mitral valve prolapse, posterior leaflet. There is no mitral valve stenosis. No mitral valve insufficiency. Tricuspid Valve There is no tricuspid stenosis. No tricuspid valve insufficiency. Unable to estimate RV systolic pressure due to insufficient tricuspid regurgitant envelope. Aortic Valve Trisinus/trileaflet aortic valve. Mild aortic stenosis. Mild (1+) aortic valve insufficiency. Pulmonic Valve There is no pulmonic valvular stenosis. No pulmonic valve insufficiency. Great Vessels Normal aortic root. Pericardium/Pleural No pericardial effusion. Medication Diluted definity 3.0ml given slow IV push to enhance endocardial definition. MMode/2D Measurements & Calculations LVOT diam: 2.0 cm Ao root diam: 2.7 cm LAV(MOD-bp): 45.4 ml LVOT area: 3.0 cm2 LAV(MOD-bp) Indexed: 23.3 ml/m2 LAV(MOD-sp2): 37.0 ml LAV(MOD-sp4): 44.3 ml SV(MOD-sp4): 64.9 ml SV(sp4-el): 68.7 ml LVAd ap4: 30.2 cm2 EDV(MOD-sp4): 94.0 ml EDV(sp4-el): 99.4 ml LVAs ap4: 14.5 cm2 ESV(MOD-sp4): 29.1 ml ESV(sp4-el): 30.7 ml EF(MOD-sp4): 69.0 % EF(sp4-el): 69.1 % LA dimension(2D): 3.6 cm LA A4 area: 17.0 cm2 RA A4 area: 13.9 cm2 Time Measurements MV dec time: 0.25 sec Doppler Measurements & Calculations MV E max brady: 97.5 cm/sec Lat Peak E' Brady: 11.2 cm/sec Med Peak E' Brady: 7.7 cm/sec MV A max brady: 69.5 cm/sec E/E' lat: 8.7 E/E' med: 12.6 MV E/A: 1.4 Ao V2 max: 246.6 cm/sec AI max brady: 497.2 cm/sec LV V1 max: 153.9 cm/sec Ao max P.4 mmHg AI max P.0 mmHg LV V1 max P.5 mmHg Ao V2 mean: 192.5 cm/sec AI dec slope: 320.7 cm/sec2 LV V1 mean P.7 mmHg Ao mean P.7 mmHg AI P1/2t: 454.1 msec LV V1 mean: 114.6 cm/sec Ao V2 VTI: 63.8 cm LV V1 VTI: 37.2 cm CHRISTIANO(I,D): 1.7 cm2 CHRISTIANO(V,D): 1.9 cm2 SV(LVOT): 111.6 ml TR max brady: 302.2 cm/sec TR max P.5 mmHg Interpretation Summary The estimated ejection fraction is 65 %. No evidence for diastolic dysfunction. Mild mitral valve prolapse, posterior leaflet Mild (1+) aortic valve insufficiency. Mild aortic stenosis. Ordering Physician: Jairo Botello Referring Physician: PHYLLIS CHAUDHARY Performed By: Anne Hernandez, RDCS, RVT
--- NOTE | 2020-07-28 16:58 | PCS.PANDOC ---
PANDEMIC DOCUMENTATION INITIATED: Date: 07/28/20 Time: 4835
[2020-07-28] MEDS: oxyCODONE 5 MG Tablet PO ×2 (17:10→21:15)
[2020-07-28] MEDS: Lactated Ringers 1,000 ML 125 ML IV (17:11)
[2020-07-28] MEDS: 0.9% Saline Lock 10 ML Syringe IV (17:12)
[2020-07-28 17:36] LABS: Hematocrit 37.1 % (37-47); Hemoglobin 12.5 g/dL (12.0-15.0); Mean Corp Hgb Conc 33.7 g/dL (32-36); Mean Corpuscular Hgb 29.9 pg (27.0-32.0); Mean Corpuscular Volume 88.8 fL (81-99); Mean Platelet Vol. 9.2 fl (6.2-12.0); Platelet Count 324 K/mm3 (150-450); RBC Distribution Width CV 13.2 % (11.6-14.6); Red Blood Count 4.18 M/mm3 (4.2-5.4); White Blood Count 13.3 K/mm3 (4.4-11.0)
--- NOTE | 2020-07-28 17:41 | PCM.HP.STD ---
History of Present Illness Date of Admission: 07/28/20 Chief Complaint: Cardiac arrhythmia The patient is a 74 year old F was taken to the operating room today at [facility] [place] for an outpatient right total hip replacement. Patient did well intraoperatively. However at the completion of the procedure she was noted to have a short period of ventricular tachycardia. This was followed by some evidence of ischemia on her EKG. She was stable in the PACU after surgery. Based on her intraoperative and postoperative cardiac technician which did also show PVCs in the PACU we elected to transfer her to the hospital for further evaluation and cardiac monitoring. Past Medical History Past Medical History (Chronic Problems): Chronic Problems HTN (hypertension) (Chronic) Osteoporosis (Chronic) Allergies amoxicillin Allergy (Verified 08/23/18 12:43) Unknown erythromycin base Allergy (Verified 08/23/18 12:43) Unknown sulfamethoxazole [From Bactrim] Allergy (Verified 08/23/18 12:43) Unknown trimethoprim [From Bactrim] Allergy (Verified 08/23/18 12:43) Unknown Home Medications: Ambulatory Orders Medication Instructions Recorded Amitriptyline HCl 25 mg PO QHS PRN 08/23/18 Atorvastatin Calcium [Lipitor] 10 mg PO QHS 08/23/18 Levothyroxine Sodium [Synthroid] 1 tab PO DAILY 08/23/18 Lisinopril 20 mg PO BID 08/23/18 Metoprolol(XL)Succ [Toprol Xl 100 mg PO DAILY 08/23/18 (Beta Kailee)] Amlodipine [Norvasc] 5 mg PO DAILY 07/28/20 Aspirin E.C. [Ecotrin] 81 mg PO DAILY@0800 07/28/20 Smoking Status: Never smoker - *Family History Paternal History Items: Hypertension Maternal History Items: Dementia - Mom was healthy and of Alzheimer's dementia in her eighties Review of Systems Constitutional: Denies: Chills, Fever, Weight Change HEENT: Denies: Head Aches, Sinus Congestion, Sinus Drainage Cardiovascular: Denies: Chest Pain, Palpitations Respiratory: Denies: Cough, Shortness of breath at rest, Sputum production Gastrointestinal: Denies: Abdominal Pain, Nausea, Vomiting Genitourinary: Denies: Dysuria Musculoskeletal: Reports: Joint Pain, Joint Tenderness Skin: Reports: Wounds - Right hip dressing. Denies: Rash Neurological: Denies: Numbness, Tingling, Focal weakness Psychiatric: Denies: Anxiety, Depression, Homicidal Ideations, Suicidal Ideations Hematologic/ Lymphatic: Denies: Easy Bruising, Easy Bleeding VTE Information - Inpt Only VTE Present on Admission: No VTE Mechan Device Prophylaxis: SCD's, Thigh High TAYLA Hose VTE Pharm Prophylaxis ordered?: Yes Patient Problems: Active and Suspected Problems NSVT (nonsustained ventricular tachycardia) (Acute) Hypothyroidism (Acute) H/O: hysterectomy (Acute) Right hip arthroplasty (Acute) - Physical Exam Vitals/I&O's: Vital Signs Temp Pulse Resp BP Pulse Ox 97.5 F L 103 H 16 155/76 H 100 07/28/20 16:40 07/28/20 16:40 07/28/20 16:40 07/28/20 16:40 07/28/20 16:40 Oxygen Flow Rate (L/min) 2 Oxygen Delivery Method Room Air Weight: 195 lb Body Mass Index (BMI) 32.4 Finger Stick Blood Glucose 147 General: Alert, Oriented x3, Cooperative HEENT: Atraumatic Neck: No JVD Lungs: - - Nonlabored breathing Cardiovascular: - - Regular pulse rate Abdomen: Non-Distended Extremities: - - Right lower extremity: Dressing is clean dry and intact Sensations intact to light touch saphenous, sural, superficial peroneal, deep peroneal, and tibial distributions Motors intact EHL, DF, PF calves are soft and supple Neurological: Cranial nerves II-XII grossly intact Psych/Mental Status: Normal Affect Laboratory Results 07/28/20 15:06: WBC 13.3 H, RBC 4.18 L, Hgb 12.5, Hct 37.1, MCV 88.8, MCH 29.9, MCHC 33.7, RDW Std Deviation 43.0, RDW Coeff of Kev 13.2, Plt Count 324, MPV 9.2 07/28/20 15:06: Sodium Pending, Potassium Pending, Chloride Pending, Carbon Dioxide Pending, Anion Gap Pending, BUN Pending, Creatinine Pending, Est GFR (MDRD) Af Amer Pending, Est GFR (MDRD) Non-Af Pending, BUN/Creatinine Ratio Pending, Glucose Pending, Calcium Pending, Magnesium Pending, Total Bilirubin Pending, AST Pending, ALT Pending, Alkaline Phosphatase Pending, Troponin I Pending, Total Protein Pending, Albumin Pending Current Medications Acetaminophen (Acetaminophen 500 Mg Tablet) 1,000 mg PO Q8 [facility] Al Hydroxide/Mg Hydroxide (Mag Hydrox/Al Hydrox/Simeth 30 Ml Udc) 30 ml PO Q6H PRN PRN PRN Reason: Gastric Burning Amitriptyline HCl (Amitriptyline 25 Mg Tablet) 25 mg PO QHS PRN PRN Reason: INSOMNIA Amlodipine Besylate (Amlodipine 5 Mg Tablet) 5 mg PO DAILY [facility] Aspirin (Aspirin 81 Mg Tab.Chew) 81 mg PO BIDCM [facility] Atorvastatin Calcium (Atorvastatin Calcium 10 Mg Tablet) 10 mg PO QHS [facility] Enteral Nutritional Formula (Ensure Surgery 237 Ml Liquid) 237 ml PO TIDCM [facility] Famotidine (Famotidine 20 Mg Tablet) 20 mg PO DAILY [facility] Lactated Ringer's () 1,000 mls @ 125 mls/hr IV .Q8H [facility] Last Admin: 07/28/20 17:11 Dose: 125 mls/hr Documented by: Levothyroxine Sodium (Levothyroxine 88 Mcg Tablet) 88 mcg PO DAILY@0600 [facility] Lisinopril (Lisinopril 20 Mg Tablet) 20 mg PO BID [facility] Melatonin (Melatonin 3 Mg Tablet) 3 mg PO QHS PRN PRN PRN Reason: INSOMNIA Metoprolol Succinate (Metoprolol(Xl)Succ 100 Mg Tablet) 100 mg PO DAILY [facility] Morphine Sulfate (Morphine 2 Mg/Ml Syringe) 2 - 4 mg IV Q2H PRN PRN PRN Reason: Pain Score 4-10 Morphine Sulfate (Morphine 4 Mg/Ml Syringe) 2 - 4 mg IV Q2H PRN PRN PRN Reason: Pain Score 4-10 Nitroglycerin (Nitroglycerin (Inpatient Use) 0.4 Mg Tab.Subl) 0.4 mg SUBLINGUAL Q5M PRN PRN Reason: CARDIAC/CHEST PAIN Ondansetron HCl (Ondansetron 4 Mg/2 Ml Vial) 4 mg IV Q8H PRN PRN PRN Reason: NAUSEA Oxycodone HCl (Oxycodone 5 Mg Tablet) 5 - 10 mg PO Q4H PRN PRN PRN Reason: Pain Score 4-10 Last Admin: 07/28/20 17:10 Dose: 5 mg Documented by: Prochlorperazine Edisylate (Prochlorperazine 10 Mg/2 Ml Vial) 5 mg IV Q4H PRN PRN PRN Reason: Breakthrough Nausea/Vomiting Promethazine HCl (Promethazine 25 Mg/Ml Syringe) 12.5 mg IM Q6H PRN PRN; Protocol PRN Reason: NAUSEA/VOMITING Senna/Docusate Sodium (Senna/Docusate Sodium 1 Tablet) 2 tablet PO BID JULITA Sodium Chloride (0.9% Saline Lock 10 Ml Syringe) 10 - 40 ml IV UD PRN PRN Reason: SALINE FLUSH Last Admin: 07/28/20 17:12 Dose: 10 ml Documented by: Assessment/Plan All Active Problems NSVT (nonsustained ventricular tachycardia) (Acute) Hypothyroidism (Acute) H/O: hysterectomy (Acute) Right hip arthroplasty (Acute) Postop day 0 right total hip replacement with intraoperative arrhythmias. Patient seems to have been stable to this point since the event intraoperatively. She did have some additional PVCs on cardiac technician. Medicine has been consulted troponins are still pending. From an orthopedic standpoint patient remained stable. Her dressing is clean and dry. She will be weightbearing as tolerated we will encourage physical therapy soon is medically appropriate. Patient will remain on aspirin 81 mg twice daily for DVT prophylaxis started tomorrow unless otherwise indicated from cardiac work-up for further anticoagulation. We will continue with current pain regimen Tylenol and oxycodone. Based on concerns for cardiac issues I have elected not to proceed with use of nonsteroidal anti-inflammatories. If there are questions please call. I will allow the medicine team to continue with the medical work-up and any further consultations they feel necessary. ANSELMO [facility] Office:
[2020-07-28 18:00] LABS: ALB/GLOB Ratio 0.8 RATIO (0.9-2.4); AST(SGOT) 25 U/L (15-37); Alanine Aminotransfer ALT/SGPT 23 U/L (13-56); Albumin, Serum 3.4 g/dL (3.2-5.0); Alkaline Phosphatase 106 U/L (45-117); Anion Gap 9 (5-15); BUN 12 mg/dL (7-18); BUN/Creat Ratio 13.7 RATIO (10-20); Calcium,Total 8.2 mg/dL (8.5-10.1); Chloride 99 mmol/L (98-107); Creatinine, Serum 0.88 mg/dL (0.55-1.02); EST Glomerular Filtration Rate 67 mL/min (>60); Est Glom Filt Rate - Afr Amer 81 mL/min (>60); Estimated Creatinine Clearance 51.23 ml/min; Glucose 132 mg/dL (74-106); Magnesium 1.6 mg/dL (1.6-2.6); Potassium 3.8 mmol/L (3.5-5.1); Protein, Total 7.4 g/dL (6.4-8.2); Sodium Level 133 mmol/L (136-145)
[2020-07-28 18:02] LABS: Bacteria 0 SEEN /hpf (None Seen); Mucous, Urine 0 SEEN /hpf (<or=2+); White Blood Cells 0 SEEN /hpf (0-5)
[2020-07-28 18:03] LABS: Color, Urine Straw (Yellow); Glucose, Dipstick 100 mg/dl (Normal); Ketone-Dipstick Negative (Negative); Leukocyte Esterase-Dipstick Negative /ul (Negative); Nitrite-Dipstick Negative (Negative); Occult Blood-Urine 10 /ul (Negative); Protein-Dipstick Negative (Negative); Urine Bilirubin Dipstick Negative (Negative); Urine Clarity Clear (Clear); Urine Urobilinogen Normal (Normal)
[2020-07-28] MEDS: Aspirin 81 MG TAB.CHEW PO (18:18)
[2020-07-28 18:37] LABS: Red Blood Cells-Urine 0-5 SEEN /hpf (0-5); Squamous Epithelial Cells - UA 0-5 SEEN /hpf (5-10)
[2020-07-28] MEDS: Acetaminophen 500 MG Tablet 1000 MG PO (21:17)
[2020-07-28] MEDS: Atorvastatin Calcium 10 MG Tablet PO (21:18)
[2020-07-28] MEDS: Amitriptyline 25 MG Tablet PO (21:18)
[2020-07-28] MEDS: Lisinopril 20 MG Tablet PO (21:18)
[2020-07-28] MEDS: Senna/Docusate Sodium 1 Tablet 2 TABLET PO (21:18)
[2020-07-29] VITALS (9 sets, daily range): BP systolic 152–161; BP diastolic 52–70; PULSE 60–76; RESP 14–18; TEMP 36.8–37.2; O2SAT 96–97
[2020-07-29] MEDS: Lactated Ringers 1,000 ML 125 ML IV ×2 (01:16→09:35)
[2020-07-29 05:32] LABS: Absolute Lymphocyte Count 1.19 X10^3/uL (0.83-4.51); Absolute Neutrophil Count 12.8 X10^3/uL (2.0-7.7); Basophil# 0.02 X10^3/uL; Basophil% 0.1 % (0-1); Hematocrit 31.7 % (37-47); Hemoglobin 10.9 g/dL (12.0-15.0); Lymphocyte # 1.19 X10^3/ul (4.0); Lymphocyte % 7.8 % (19-41); Mean Corp Hgb Conc 34.4 g/dL (32-36); Mean Corpuscular Hgb 30.4 pg (27.0-32.0); Mean Corpuscular Volume 88.3 fL (81-99); Mean Platelet Vol. 9.2 fl (6.2-12.0); Monocyte# 1.12 X10^3/uL; Monocyte% 7.4 % (0-10); NRBC Flagged by Analyzer 0 % (0-5); Neutrophil # 12.79 X10^3/uL (2.7-7.7); Neutrophil % 84.2 % (47-70); Platelet Count 323 K/mm3 (150-450); RBC Distribution Width SD 41.7 fl (35.1-43.9); Red Blood Count 3.59 M/mm3 (4.2-5.4); White Blood Count 15.2 K/mm3 (4.4-11.0)
[2020-07-29] MEDS: Levothyroxine 88 MCG Tablet PO (05:37)
[2020-07-29] MEDS: Acetaminophen 500 MG Tablet 1000 MG PO ×2 (05:37→13:22)
[2020-07-29 06:03] LABS: Anion Gap 6 (5-15); BUN 10 mg/dL (7-18); BUN/Creat Ratio 12.7 RATIO (10-20); Calcium,Total 8.5 mg/dL (8.5-10.1); Chloride 100 mmol/L (98-107); Cholesterol 141 mg/dL (200); Creatinine, Serum 0.79 mg/dL (0.55-1.02); EST Glomerular Filtration Rate 76 mL/min (>60); Est Glom Filt Rate - Afr Amer 92 mL/min (>60); Estimated Creatinine Clearance 45.09 ml/min; Glucose 124 mg/dL (74-106); High Density Lipoprotein 71 mg/dL; Phosphorus 3.2 mg/dL (2.5-4.9); Potassium 4.1 mmol/L (3.5-5.1); Sodium Level 133 mmol/L (136-145); Thyroid Stim Hormone (TSH) 0.52 uIU/mL (0.358-3.74); Triglycerides 55 mg/dL; Very Low Density Lipoprotein 11 mg/dL (5-40)
--- NOTE | 2020-07-29 07:46 | PCM.PN.ORT ---
Patient Problems: Active and Suspected Problems NSVT (nonsustained ventricular tachycardia) (Acute) Hypothyroidism (Acute) H/O: hysterectomy (Acute) Right hip arthroplasty (Acute) Subjective: The patient was sitting in bed upon examination. Patient denies any chest pain, shortness of breath, dizziness, lightheadedness, nausea or vomiting, or calf pain. Pain is controlled on medications. No adverse overnight events. Patient underwent an outpatient total hip arthroplasty at [facility] [place] on July 28, 2020. Patient had some tachycardia during surgery with short run of V. tach. Patient was transferred to [facility]. Patient had troponins yesterday which were normal. Patient currently in bed states she has no chest pain, shortness of breath, dizziness or lightheadedness. Denies any calf pain. Patient denies feeling any rapid heart rate. She states overall she has not had any significant issues but occasionally when she lies down in bed feels her heart racing at times. She has discussed this with her primary care physician. She has had no other cardiac symptoms in the past. Objective: Vital signs stable and afebrile. Patient is able to plantarflex and dorsiflex actively. Sensation is intact to light touch to saphenous, sural, superficial and deep peroneal, and tibial distribution. Dressing is clean dry and intact. Negative Homans bilaterally, negative signs and symptoms of DVT. - Physical Exam Vitals/I&O's: Vital Signs Temp Pulse Resp BP Pulse Ox 98.6 F 71 17 156/67 H 97 07/29/20 05:35 07/29/20 05:35 07/29/20 05:35 07/29/20 05:35 07/29/20 05:35 Oxygen Flow Rate (L/min) 2 Oxygen Delivery Method Room Air Weight: 88.451 kg Body Mass Index (BMI) 32.4 Finger Stick Blood Glucose 147 Intake and Output for Last 24 Hours 07/27/20 07/28/20 07/29/20 23:59 23:59 23:59 Intake Total 1380.83 / 1380.83 358.17 / 358.17 Output Total 500 / 500 Balance 880.83 / 880.83 358.17 / 358.17 General: Alert, Oriented x3, Cooperative, No apparent distress Laboratory Results 07/28/20 15:06: WBC 13.3 H, RBC 4.18 L, Hgb 12.5, Hct 37.1, MCV 88.8, MCH 29.9, MCHC 33.7, RDW Std Deviation 43.0, RDW Coeff of Kev 13.2, Plt Count 324, MPV 9.2 07/28/20 15:06: Sodium 133 L, Potassium 3.8, Chloride 99, Carbon Dioxide 25.0, Anion Gap 9, BUN 12, Creatinine 0.88, Estim Creat Clear Calc 51.23, Est GFR (MDRD) Af Amer 81, Est GFR (MDRD) Non-Af 67, BUN/Creatinine Ratio 13.7, Glucose 132 H, Calcium 8.2 L, Magnesium 1.6, Total Bilirubin 0.40, AST 25, ALT 23, Alkaline Phosphatase 106, Troponin I < 0.015, Total Protein 7.4, Albumin 3.4, Globulin 4.0, Albumin/Globulin Ratio 0.8 L 07/28/20 17:45: Urine Color Straw, Urine Clarity Clear, Urine pH 8.0, Ur Specific [place] 1.010, Urine Protein Negative, Urine Glucose (UA) 100 H, Urine Ketones Negative, Urine Occult Blood 10 H, Urine Nitrite Negative, Urine Bilirubin Negative, Urine Urobilinogen Normal, Ur Leukocyte Esterase Negative, Urine RBC 0-5 SEEN, Urine WBC 0 SEEN, Ur Squamous Epith Cells 0-5 SEEN, Urine Bacteria 0 SEEN, Urine Mucus 0 SEEN 07/28/20 20:06: Troponin I < 0.015 07/28/20 23:14: Troponin I < 0.015 07/29/20 05:20: WBC 15.2 H, RBC 3.59 L, Hgb 10.9 L, Hct 31.7 L, MCV 88.3, MCH 30.4, MCHC 34.4, RDW Std Deviation 41.7, RDW Coeff of Kev 13.0, Plt Count 323, MPV 9.2, Immature Gran % (Auto) 0.500, Neut % (Auto) 84.2 H, Lymph % (Auto) 7.8 L, [place] % (Auto) 7.4, Eos % (Auto) 0.0, Baso % (Auto) 0.1, Absolute Neuts (auto) 12.8 H, Absolute Lymphs (auto) 1.19, Nucleated RBC % 0 07/29/20 05:20: Sodium 133 L, Potassium 4.1, Chloride 100, Carbon Dioxide 27.0, Anion Gap 6, BUN 10, Creatinine 0.79, Estim Creat Clear Calc 45.09, Est GFR (MDRD) Af Amer 92, Est GFR (MDRD) Non-Af 76, BUN/Creatinine Ratio 12.7, Glucose 124 H, Calcium 8.5, Phosphorus 3.2, Triglycerides 55, Cholesterol 141, LDL Cholesterol 59, VLDL Cholesterol 11, HDL Cholesterol 71, TSH 0.52 Current Medications Acetaminophen (Acetaminophen 500 Mg Tablet) 1,000 mg PO Q8 [facility] Last Admin: 07/29/20 05:37 Dose: 1,000 mg Documented by: Al Hydroxide/Mg Hydroxide (Mag Hydrox/Al Hydrox/Simeth 30 Ml Udc) 30 ml PO Q6H PRN PRN PRN Reason: Gastric Burning Amitriptyline HCl (Amitriptyline 25 Mg Tablet) 25 mg PO QHS PRN PRN Reason: INSOMNIA Last Admin: 07/28/20 21:18 Dose: 25 mg Documented by: Amlodipine Besylate (Amlodipine 5 Mg Tablet) 5 mg PO DAILY [facility] Aspirin (Aspirin 81 Mg [facility].Chew) [facility] Last Admin: 07/28/20 18:18 Dose: 81 mg Documented by: Atorvastatin Calcium (Atorvastatin Calcium 10 Mg Tablet) 10 mg PO QHS [facility] Last Admin: 07/28/20 21:18 Dose: 10 mg Documented by: Enteral Nutritional Formula (Ensure Surgery 237 Ml Liquid) 237 ml PO TIDCM [facility] Last Admin: 07/28/20 18:18 Dose: Not Given Documented by: Famotidine (Famotidine 20 Mg Tablet) 20 mg PO DAILY [facility] Lactated Ringer's () 1,000 mls @ 125 mls/hr IV .Q8H [facility] Last Admin: 07/29/20 01:16 Dose: 125 mls/hr Documented by: Levothyroxine Sodium (Levothyroxine 88 Mcg Tablet) 88 mcg PO DAILY@0600 [facility] Last Admin: 07/29/20 05:37 Dose: 88 mcg Documented by: Lisinopril (Lisinopril 20 Mg Tablet) 20 mg PO BID [facility] Last Admin: 07/28/20 21:18 Dose: 20 mg Documented by: Melatonin (Melatonin 3 Mg Tablet) 3 mg PO QHS PRN PRN PRN Reason: INSOMNIA Metoprolol Succinate (Metoprolol(Xl)Succ 100 Mg Tablet) 100 mg PO DAILY [facility] Morphine Sulfate (Morphine 2 Mg/Ml Syringe) 2 - 4 mg IV Q2H PRN PRN PRN Reason: Pain Score 4-10 Morphine Sulfate (Morphine 4 Mg/Ml Syringe) 2 - 4 mg IV Q2H PRN PRN PRN Reason: Pain Score 4-10 Nitroglycerin (Nitroglycerin (Inpatient Use) 0.4 Mg Tab.Subl) 0.4 mg SUBLINGUAL Q5M PRN PRN Reason: CARDIAC/CHEST PAIN Ondansetron HCl (Ondansetron 4 Mg/2 Ml Vial) 4 mg IV Q8H PRN PRN PRN Reason: NAUSEA Oxycodone HCl (Oxycodone 5 Mg Tablet) 5 - 10 mg PO Q4H PRN PRN PRN Reason: Pain Score 4-10 Last Admin: 07/28/20 21:15 Dose: 5 mg Documented by: Prochlorperazine Edisylate (Prochlorperazine 10 Mg/2 Ml Vial) 5 mg IV Q4H PRN PRN PRN Reason: Breakthrough Nausea/Vomiting Promethazine HCl (Promethazine 25 Mg/Ml Syringe) 12.5 mg IM Q6H PRN PRN; Protocol PRN Reason: NAUSEA/VOMITING Senna/Docusate Sodium (Senna/Docusate Sodium 1 Tablet) 2 tablet PO BID [facility] Last Admin: 07/28/20 21:18 Dose: 2 tablet Documented by: Sodium Chloride (0.9% Saline Lock 10 Ml Syringe) 10 - 40 ml IV UD PRN PRN Reason: SALINE FLUSH Last Admin: 07/28/20 17:12 Dose: 10 ml Documented by: Medical Necessity - Tobacco Use Smoking Status: Never smoker Assessment/Plan All Active Problems NSVT (nonsustained ventricular tachycardia) (Acute) Hypothyroidism (Acute) H/O: hysterectomy (Acute) Right hip arthroplasty (Acute) 1. S/P right direct anterior total hip arthroplasty POD #1 2. Continue Pain Medications: Tylenol and OxyIR 3. DVT Prophylaxis: Take 81 mg aspirin twice daily for 4 weeks postoperatively for DVT prophylaxis 4. PT/OT: Weightbearing as tolerated 5. H & H: 10.9/31.7, asymptomatic. Postoperative anemia secondary to acute blood loss from surgery without any intra operative complications. 6. Reactive leukocytosis: Currently 15.2, afebrile. Patient did receive Decadron intraoperatively yesterday 7. Continue postoperative medical management per medicine 8. Encouraged Incentive Spirometry 9. Disposition: Case was discussed with the hospitalist and patient will get an echo today. If it is within normal limits plan will be for discharge home today. Patient has all of her medications as she was an outpatient total hip arthroplasty. She will continue with medications as discussed. I would like her to stop the meloxicam and not use this postoperatively. Her pain is been well controlled on her right hip. She will continue with physical therapy outpatient which will begin on August 01, 2020. She will also keep her scheduled 2-week follow-up with our office for x-rays of her right hip and incision check.
--- NOTE | 2020-07-29 07:59 | DCINST_ITS ---
Discharge Diet: No Restrictions Discharge Activity: May Not Drive - while taking narcotic pain medications. May shower in (days): 1 - Okay to shower if dressing is intact to skin. Turn dressing away from water. Do not submerge underwater for 6 weeks postoperatively. Ice area for (Minutes): 20 - Every 1-2 hours while awake Weight Bearing Status: Weight bearing as tolerated Elevate: Operative Extremity Additional Activity Instructions:: Wear elastic stockings for 2 weeks. DO NOT use alcohol with narcotic pain medication. DO NOT make important decisions while taking narcotic medication. If you have problems with taking your medication (rash, itching, nausea, etc.) call the office at once. Call your doctor if your incision/area has: Increased Pain/ Swelling, Increased Redness, Foul Smelling Discharge Call your doctor if you observe: Fever of 101 or Higher Remove Dressing in (days):: 4 - Okay to remove dressing on August 02, 2020 Additional Instructions: Follow [facility] Post-op Instructions. Once postoperative dressing has been removed only use gentle soap and water over the incision. Do not use any ointments, Neosporin, salves, alcohol pads over the incision for 6 weeks postoperatively. Do not submerge underwater for 6 weeks postoperatively. Allergies/Adverse Reactions: Allergies amoxicillin Allergy (Verified 08/23/18 12:43) Unknown erythromycin base Allergy (Verified 08/23/18 12:43) Unknown sulfamethoxazole [From Bactrim] Allergy (Verified 08/23/18 12:43) Unknown trimethoprim [From Bactrim] Allergy (Verified 08/23/18 12:43) Unknown Medications to take at Discharge Amitriptyline HCl 25 mg PO QHS PRN 08/23/18 Atorvastatin Calcium [Lipitor] 10 mg PO QHS 08/23/18 Levothyroxine Sodium [Synthroid] 88 mcg PO DAILY 08/23/18 Lisinopril 20 mg PO BID 08/23/18 Metoprolol(XL)Succ [Toprol Xl (Beta Kailee)] 100 mg PO DAILY 08/23/18 Amlodipine [Norvasc] 5 mg PO DAILY 07/28/20 Acetaminophen [Tylenol] 1,000 mg PO Q8 tab 07/29/20 Aspirin [Aspirin, Baby] 81 mg PO BIDCM tab.chew 07/29/20 Famotidine [Pepcid] 20 mg PO DAILY tab 07/29/20 Oxycodone [Oxyir] 5 - 10 mg PO Q4H PRN PRN 7 Days tab 07/29/20 Senna/Docusate Sodium [Senokot-S] 2 tab PO BID tab 07/29/20 Primary Care Physician: Aleena Barreto MD [Primary Care Provider] - Please follow up with your Primary Care Physician in: within 1-2 weeks upon discharge from hospital Test Results: Test results from this visit will be discussed in further detail at your follow- up appointment, if applicable. Please Follow Up With: Physical Therapy When: 08/01/20 Please Follow Up With: Macario Amos PA-C When: follow up in 2 weeks
[2020-07-29] MEDS: oxyCODONE 5 MG Tablet PO ×2 (08:59→13:22)
[2020-07-29] MEDS: Aspirin 81 MG TAB.CHEW PO (09:02)
[2020-07-29] MEDS: Senna/Docusate Sodium 1 Tablet 2 TABLET PO (09:46)
[2020-07-29] MEDS: Metoprolol(XL)Succ 100 MG Tablet PO (09:46)
[2020-07-29] MEDS: amLODIPine 5 MG Tablet PO (09:46)
[2020-07-29] MEDS: Famotidine 20 MG Tablet PO (09:46)
[2020-07-29] MEDS: Lisinopril 20 MG Tablet PO (09:47)
--- NOTE | 2020-07-29 11:00 | CASEMGMT ---
This RN CM to room to discuss d/c plan at this time. Pt states she has OP therapy already set up at [facility] and start date is 08/01/20. Pt has her own WW at bedside and states no further questions/concerns/needs at this time. SStaten LATISHA CM
--- NOTE | 2020-07-29 12:00 | PCM.PN.HOSP ---
Patient Problems: Active and Suspected Problems NSVT (nonsustained ventricular tachycardia) (Acute) Hypothyroidism (Acute) H/O: hysterectomy (Acute) Right hip arthroplasty (Acute) Objective: Patient heart rate and blood pressure are in acceptable limit and on baseline. No dizzy, vertigo, palpitation or missed or extra heartbeat. No chest pain or/pressure. No shortness of breath. secured entrance monitor PVCs, pulsus bigeminy and one time 3-4 PVCs Physical exam General: Alert, Oriented x3, Cooperative HEENT: Atraumatic, PERRLA, EOMI, Normocephalic Oral: No Gingival or Mucosal Lesions/ Ulcerations Neck: Supple, No JVD, Negative Carotid Bruits Lungs: Air entry diminished in bilateral lung bases. No crepitation/rhonchi Cardiovascular: Regular rate, Regular Rhythm, Normal S1, Normal S2, No murmurs Abdomen: Bowel Sounds Present, Soft, Non Tender, Non-Distended : No renal angle tenderness. No suprapubic tenderness. Extremities: No edema, Capillary Refill Less than 3 Seconds Skin: No rashes, No breakdown Musculoskeletal: No Tenderness to Palpation of Joints or Extremities Neurological: Cranial nerves II-XII grossly intact, Deep Tendon Reflexes 2+/4 and Symmetrical, Neuro grossly intact Psych/Mental Status: Normal Affect, Appropriate. Vitals/I&O's: Vital Signs Temp Pulse Resp BP Pulse Ox 99 F 63 14 161/70 H 97 07/29/20 11:30 07/29/20 11:30 07/29/20 11:30 07/29/20 11:30 07/29/20 11:30 Oxygen Flow Rate (L/min) 2 Oxygen Delivery Method Room Air Weight: 195 lb Body Mass Index (BMI) 32.4 Finger Stick Blood Glucose 147 Intake and Output for Last 24 Hours 07/27/20 07/28/20 07/29/20 23:59 23:59 23:59 Intake Total 1380.83 / 1380.83 1358.17 / 1358.17 Output Total 500 / 500 Balance 880.83 / 880.83 1358.17 / 1358.17 Laboratory Results 07/28/20 15:06: WBC 13.3 H, RBC 4.18 L, Hgb 12.5, Hct 37.1, MCV 88.8, MCH 29.9, MCHC 33.7, RDW Std Deviation 43.0, RDW Coeff of Kev 13.2, Plt Count 324, MPV 9.2 07/28/20 15:06: Sodium 133 L, Potassium 3.8, Chloride 99, Carbon Dioxide 25.0, Anion Gap 9, BUN 12, Creatinine 0.88, Estim Creat Clear Calc 51.23, Est GFR (MDRD) Af Amer 81, Est GFR (MDRD) Non-Af 67, BUN/Creatinine Ratio 13.7, Glucose 132 H, Calcium 8.2 L, Magnesium 1.6, Total Bilirubin 0.40, AST 25, ALT 23, Alkaline Phosphatase 106, Troponin I < 0.015, Total Protein 7.4, Albumin 3.4, Globulin 4.0, Albumin/Globulin Ratio 0.8 L 07/28/20 17:45: Urine Color Straw, Urine Clarity Clear, Urine pH 8.0, Ur Specific [place] 1.010, Urine Protein Negative, Urine Glucose (UA) 100 H, Urine Ketones Negative, Urine Occult Blood 10 H, Urine Nitrite Negative, Urine Bilirubin Negative, Urine Urobilinogen Normal, Ur Leukocyte Esterase Negative, Urine RBC 0-5 SEEN, Urine WBC 0 SEEN, Ur Squamous Epith Cells 0-5 SEEN, Urine Bacteria 0 SEEN, Urine Mucus 0 SEEN 07/28/20 20:06: Troponin I < 0.015 07/28/20 23:14: Troponin I < 0.015 07/29/20 05:20: WBC 15.2 H, RBC 3.59 L, Hgb 10.9 L, Hct 31.7 L, MCV 88.3, MCH 30.4, MCHC 34.4, RDW Std Deviation 41.7, RDW Coeff of Kev 13.0, Plt Count 323, MPV 9.2, Immature Gran % (Auto) 0.500, Neut % (Auto) 84.2 H, Lymph % (Auto) 7.8 L, [place] % (Auto) 7.4, Eos % (Auto) 0.0, Baso % (Auto) 0.1, Absolute Neuts (auto) 12.8 H, Absolute Lymphs (auto) 1.19, Nucleated RBC % 0 07/29/20 05:20: Sodium 133 L, Potassium 4.1, Chloride 100, Carbon Dioxide 27.0, Anion Gap 6, BUN 10, Creatinine 0.79, Estim Creat Clear Calc 45.09, Est GFR (MDRD) Af Amer 92, Est GFR (MDRD) Non-Af 76, BUN/Creatinine Ratio 12.7, Glucose 124 H, Calcium 8.5, Phosphorus 3.2, Triglycerides 55, Cholesterol 141, LDL Cholesterol 59, VLDL Cholesterol 11, HDL Cholesterol 71, TSH 0.52 Current Medications Acetaminophen (Acetaminophen 500 Mg Tablet) 1,000 mg PO Q8 [facility]PLACED BY [facility] Last Admin: 07/29/20 05:37 Dose: 1,000 mg Documented by: Al Hydroxide/Mg Hydroxide (Mag Hydrox/Al Hydrox/Simeth 30 Ml Udc) 30 ml PO Q6H PRN PRN PRN Reason: Gastric Burning Amitriptyline HCl (Amitriptyline 25 Mg Tablet) 25 mg PO QHS PRN PRN Reason: INSOMNIA Last Admin: 07/28/20 21:18 Dose: 25 mg Documented by: Amlodipine Besylate (Amlodipine 5 Mg Tablet) 5 mg PO DAILY [facility]PLAC[facility] Last Admin: 07/29/20 09:46 Dose: 5 mg Documented by: Aspirin (Aspirin 81 Mg [facility].Chew) [facility] Last Admin: 07/29/20 09:02 Dose: 81 mg Documented by: Atorvastatin Calcium (Atorvastatin Calcium 10 Mg Tablet) 10 mg PO QHS REPLACED BY [facility] Last Admin: 07/28/20 21:18 Dose: 10 mg Documented by: Enteral Nutritional Formula (Ensure Surgery 237 Ml Liquid) 237 ml PO TIDCM REPLACED BY [facility] Last Admin: 07/29/20 09:02 Dose: Not Given Documented by: Famotidine (Famotidine 20 Mg Tablet) 20 mg PO DAILY [facility]PL[facility]ED BY [facility] Last Admin: 07/29/20 09:46 Dose: 20 mg Documented by: Lactated Ringer's () 1,000 mls @ 125 mls/hr IV .Q8H REPLACED BY [facility] Last Admin: 07/29/20 09:35 Dose: 125 mls/hr Documented by: Levothyroxine Sodium (Levothyroxine 88 Mcg Tablet) 88 mcg PO DAILY@0600 REPLACED [facility] Last Admin: 07/29/20 05:37 Dose: 88 mcg Documented by: Lisinopril (Lisinopril 20 Mg Tablet) 20 mg PO BID [facility]PL[facility] Last Admin: 07/29/20 09:47 Dose: 20 mg Documented by: Melatonin (Melatonin 3 Mg Tablet) 3 mg PO QHS PRN PRN PRN Reason: INSOMNIA Metoprolol Succinate (Metoprolol(Xl)Succ 100 Mg Tablet) 100 mg PO DAILY REPLACED BY [facility] Last Admin: 07/29/20 09:46 Dose: 100 mg Documented by: Morphine Sulfate (Morphine 2 Mg/Ml Syringe) 2 - 4 mg IV Q2H PRN PRN PRN Reason: Pain Score 4-10 Morphine Sulfate (Morphine 4 Mg/Ml Syringe) 2 - 4 mg IV Q2H PRN PRN PRN Reason: Pain Score 4-10 Nitroglycerin (Nitroglycerin (Inpatient Use) 0.4 Mg Tab.Subl) 0.4 mg SUBLINGUAL Q5M PRN PRN Reason: CARDIAC/CHEST PAIN Ondansetron HCl (Ondansetron 4 Mg/2 Ml Vial) 4 mg IV Q8H PRN PRN PRN Reason: NAUSEA Oxycodone HCl (Oxycodone 5 Mg Tablet) 5 - 10 mg PO Q4H PRN PRN PRN Reason: Pain Score 4-10 Last Admin: 07/29/20 08:59 Dose: 5 mg Documented by: Prochlorperazine Edisylate (Prochlorperazine 10 Mg/2 Ml Vial) 5 mg IV Q4H PRN PRN PRN Reason: Breakthrough Nausea/Vomiting Promethazine HCl (Promethazine 25 Mg/Ml Syringe) 12.5 mg IM Q6H PRN PRN; Protocol PRN Reason: NAUSEA/VOMITING Senna/Docusate Sodium (Senna/Docusate Sodium 1 Tablet) 2 tablet PO BID REPLACED BY [facility] Last Admin: 07/29/20 09:46 Dose: 2 tablet Documented by: Sodium Chloride (0.9% Saline Lock 10 Ml Syringe) 10 - 40 ml IV UD PRN PRN Reason: SALINE FLUSH Last Admin: 07/28/20 17:12 Dose: 10 ml Documented by: STROKE Vital Signs/Narrative: Vital Signs Temp Pulse Resp BP Pulse Ox 07/29/20 11:30 99 F 63 14 161/70 H 97 07/29/20 09:46 76 Medical Necessity - Tobacco Use Smoking Status: Never smoker Assessment/Plan All Active Problems NSVT (nonsustained ventricular tachycardia) (Acute) Hypothyroidism (Acute) H/O: hysterectomy (Acute) Right hip arthroplasty (Acute) This is a 74-year-old female who was directly admitted in PCU from [facility] after she developed NSVT and ST-T changes on conveyor monitor after neuromuscular reversal. Twelve-lead EKG done here shows normal sinus rhythm, QTC 431 ms, QRS 98 ms. On conveyor monitor shows PVCs pulsus bigeminy. 1. NSVT no prior history of cardiac disease: Patient is being admitted for the PCU on conveyor monitor. Serial troponin enzymes negative. Magnesium 1.6 which was replaced. Phosphorus level normal. K4.1. Patient fasting profile in normal limit, LDL 59, HDL 71. Patient on metoprolol succinate 100 mg daily and lisinopril 20 mg twice daily with holding parameters for heart rate and blood pressure. On conveyor monitor she had PVCs, pulsus bigeminy and one time 3-4 beats of NSVT. She is asymptomatic during hospital stay. 2D echo was done and discussed with the wood heel attacher, Dr. Sheldon. No major valvular abnormality. Interpretation Summary The estimated ejection fraction is 65 %. No evidence for diastolic dysfunction. Mild mitral valve prolapse, posterior leaflet Mild (1+) aortic valve insufficiency. Mild aortic stenosis. 2. Hypertension: BP is 150/69. Heart rate 68/min, normal sinus rhythm. She has leukocytosis and she got preoperative and Intra-Op steroid as per orthopedic PA. 3. Hypothyroidism: TSH 0.52 normal range. 4. Dyslipidemia: On atorvastatin 20 mg daily. Fasting profile tomorrow a.m. 5. Right hip anterior total arthroplasty: Patient on aspirin 81 mg twice daily for DVT prophylaxis. On PT and OT. Patient is being discharged by primary orthopedic service. Follow with PCP in 1 to 2 weeks. Inpatient E&M: [id number] [facility] L2
== END 2020-07-29 16:40 | disposition home or self-care (01) ==
PROVIDERS: Internal Medicine; Admitting Provider Specialist; PCP Internal Medicine; Visit Provider Specialist
DX: I47.2 Ventricular tachycardia (principal); I97.791 Other intraoperative cardiac functional disturbances during other surgery; I10 Essential (primary) hypertension; I49.3 Ventricular premature depolarization; E03.9 Hypothyroidism, unspecified; Z79.899 Other long term (current) drug therapy; Z79.82 Long term (current) use of aspirin; E78.5 Hyperlipidemia, unspecified; Z96.641 Presence of right artificial hip joint; Y83.8 Other surgical procedures as the cause of abnormal reaction of the patient, or of later complication, without mention of misadventure at the time of the procedure; Y79.2 Prosthetic and other implants, materials and accessory orthopedic devices associated with adverse incidents; Y92.530 Ambulatory surgery center as the place of occurrence of the external cause; I35.2 Nonrheumatic aortic (valve) stenosis with insufficiency
CPT/HCPCS: 36415; 80048; 80053; 80061; 81001; 83735; 84100; 84443; 84484; 85025; 85027; 93005; 93306; 94762; 96360; 96361; 97116; 97162; 97166; 97530; 97535; 99218; 99251; J7120; Q9957; A4216; C8929; G0378; G0379; G0463

== ENCOUNTER → 2021-10-19 | Outpatient (CLI) | payer MEDICARE, SELFPAY ==
--- NOTE | 2021-10-19 12:11 | BI_ITS ---
MAMMOGRAPHY - BILATERAL SCREENING 3-D TOMOSYNTHESIS REASON FOR EXAM: Female, 76 years old. SCREENING PERTINENT HISTORY: No significant family history. TECHNIQUE: 2-D mammograms and 3-D Tomosynthesis of the breast (s) were performed. CAD was performed. COMPARISON: 07/15/2020 FINDINGS: The breast composition is heterogeneously dense that can obscure small breast masses. Scattered benign calcifications are seen. 2 cm oval obscured equal density mass in the upper outer quadrant right breast at mid depth and focal compression views are recommended for further evaluation. No dominant mass left breast. Bilateral benign calcifications.. No architectural distortion is identified. There is no skin thickening or retraction. BI/SCRN MAMM (CAD)W/BETTY BILAT IMPRESSION: 2 cm oval obscured equal density mass in the upper-outer quadrant right breast at mid depth and focal compression views recommended for further evaluation. ASSESSMENT CATEGORY: BIRADS Category 0: Incomplete. Need additional imaging evaluation as above. A letter regarding these results will be sent to the patient by the facility within 30 days. FOLLOW UP RECOMMENDATION: Additional imaging recommended as above. (E) Approximately 10% of breast cancers are not detected by mammography. A normal mammogram should not delay biopsy of a clinically suspicious abnormality. Electronically Signed: Morgan Wong MD at 16:23 EDT ,
== END | disposition home or self-care (01) ==
PROVIDERS: PCP Internal Medicine; Referring Provider Internal Medicine; Visit Provider Internal Medicine
DX: Z12.31 Encounter for screening mammogram for malignant neoplasm of breast (principal)
CPT/HCPCS: 77063; 77067

== ENCOUNTER → 2021-10-24 | Outpatient (CLI) | payer MEDICARE, SELFPAY ==
--- NOTE | 2021-10-24 14:27 | BI_ITS ---
MAMMOGRAPHY - UNILATERAL DIAGNOSTIC: RIGHT BREAST REASON FOR EXAM: Female, 76 years old. RT ABN MAMM PERTINENT HISTORY: Non-contributory. TECHNIQUE: Digital examination. Mediolateral oblique (MLO) and craniocaudad (CC) views of the breast were obtained. CAD: CAD was not performed on this study. COMPARISON: 10/19/2021 FINDINGS: Breast Composition: The breasts are heterogeneously dense, which may obscure small masses. Focal compression views confirm a 2 cm oval obscured equal density mass in the upper outer quadrant of the right breast at mid depth and ultrasound is recommended for further evaluation. No other significant abnormalities are identified. BI/DIAG MAMM W/CAD, UNILAT IMPRESSION: Further ultrasonographic evaluation recommended, as described above. ASSESSMENT CATEGORY: BIRADS Category 0: Incomplete. Need additional imaging evaluation. A letter regarding these results will be sent to the patient by the facility within 30 days. FOLLOW-UP RECOMMENDATION: Ultrasound recommended. (I) Approximately 10% of breast cancers are not detected by mammography. A normal mammogram should not delay biopsy of a clinically suspicious abnormality. Electronically Signed: Morgan Wong MD at 15:06 EDT ,
--- NOTE | 2021-10-24 15:07 | US_ITS ---
STUDY: ULTRASOUND BREAST - RIGHT REASON FOR EXAM: Female, 76 years old. Abnormal screening mammogram TECHNIQUE: Axial and longitudinal images of the RIGHT breast were performed with a high resolution ultrasound transducer. # OF IMAGES: 69 COMPARISON: Diagnostic mammogram earlier today, screening mammogram 10/19/2021 FINDINGS: RIGHT Breast: Heterogeneous background echotexture. At 9 o''clock, 5 cm, ultrasound demonstrates a 12 mm oval parallel indistinct slightly hypoechoic mass with no posterior features are not consistent with a simple cyst and therefore ultrasound-guided vacuum-assisted core biopsy is recommended.: US/Breast Limited Unilateral IMPRESSION: Ultrasound confirms a 12 mm oval parallel indistinct slightly hypoechoic mass and ultrasound-guided vacuum-assisted core biopsy is recommended. ASSESSMENT CATEGORY: BIRADS Category 4: Suspicious - Biopsy Should Be Considered. A letter regarding these results will be sent to the patient by the facility within 30 days. Electronically Signed: Morgan Wong MD at 16:11 EDT ,
== END | disposition home or self-care (01) ==
LOC: OPBI 14:24
PROVIDERS: PCP Internal Medicine; Visit Provider Internal Medicine
DX: R92.2 Inconclusive mammogram (principal)
CPT/HCPCS: 76642; 77065

== ENCOUNTER → 2021-10-31 | Outpatient (CLI) | payer MEDICARE, SELFPAY ==
--- NOTE | 2021-10-31 | BRBX_PTH ---
PATIENT: VIRA GIORDANO LOC: [facility] U#:[id number] AGE/SX: 76/F ROOM: RE10/31/[address]: Dr. Barbara High MD : [id number] BED: DIS: 10/31/2021 SPEC #: [id number] RECD: 10/31/21 09:21 STATUS: PAULINO MCKEON #: [id number] SHAMA: 10/31/21 00:[address]: Barbara High DEPT: SURGICAL PATHOLOGY RECD BY: Charlotte Cazares ENTERED: 10/31/21 09:37 SP TYPE: BREAST BX OTHR DR: Dr. Aleena Barreto MD Tissues: Right breast, NOS Procedures: Surgery Specimen Level IV HEADER OPERATION: Ultrasound Guided Right Breast Biopsy PRE-OP DIAGNOSIS: Right Breast Mass TISSUE SUBMITTED: Right Breast Biopsy, 9 o?clock +5 MICROSCOPIC DIAGNOSIS Right breast mass, core biopsy: Benign collagenized tissue. AM:rick 11/01/2021 MICROSCOPIC DESCRIPTION Slides are reviewed. GROSS DESCRIPTION Received in fixative is one container labeled with the patient's name and designated right breast 9 o?clock +5. The specimen consists of multiple elongated fragments of norton-yellow fibroadipose tissue that in aggregate measure 1.2 x 0.3 x 0.1 cm. The entire specimen is submitted in one cassette. / SJ:rick 10/31/2021 TC:5 CPT: 24265
--- NOTE | 2021-10-31 07:55 | US_ITS ---
ULTRASOUND GUIDED CORE BIOPSY REASON FOR EXAM: Female, 76 years old. Right breast mass -- RT BREAST BIOPSY 9:00 +5 PERTINENT HISTORY: Abnormal breast ultrasound. COMPARISON: Comparison is made with prior sonogram dated 10/24/2021. TECHNIQUE: (All elements of maximal sterile barrier technique followed, including US elements as applicable) Under direct sonographic guidance, the surgeon performing core biopsies of the hypoechoic solid nodule at the 9 o''clock position of the breast at 5 cm from nipple. US/US Breast Biopsy 1st Lesion IMPRESSION: Ultrasound guided core biopsy of a mass in the RIGHT breast at the 9 o''clock position of the breast and 5 cm from the nipple without complication. Electronically Signed: Angelo Looney MD at 10:15 EDT ,
--- NOTE | 2021-10-31 09:03 | PCM.OPRPT ---
Report of Operation Date of Procedure: 10/31/21 Pre-Operative Diagnosis: right breast mass Post-Operative Diagnosis: same Surgery/Procedure Performed:: U/S guided right breast core biopsy Surgeon: Barbara High Type of Anesthesia: Local Specimen's removed: right breast mass 9:00 5 cm from the nipple Estimated Blood Loss (mL): minimal Description of Procedure: Procedure: right ultrasound-guided core biopsy Indications: 76year-old female with hypoechoic nodule at 9:00 in the right breast 5 centimeters from the nipple. Risk benefits were discussed the patient and she elected to proceed with ultrasound guided core biopsy with clip placement Description of procedure: Patient was brought into the ultrasound room in the right breast was marked. A timeout was completed verifying correct patient, procedure, site, specially, prior to beginning procedure. The right breast was prepped and draped in usual sterile fashion and using local anesthesia was obtained with 1% lidocaine with epi. The lesion was located with the ultrasound. Small incision was made with 11 blade to introduced the BARD MaxCore through the skin. Under ultrasound guidance multiple core samples were obtained using then 14-gauge BARD MaxCore and sent in formalin for pathology. The BARD dual ultracoil clip was then deployed into the biopsy cavity under ultrasound guidance and a picture was taken. Upon completion procedure hemostasis was obtained and a Steri-Strip and OpSite were placed. Patient was then taken to the mammography suite for clip verification. The clip was verified. The patient tolerated the procedure well and was discharged from the breast imaging department good condition. complications: none Complications none
== END | disposition home or self-care (01) ==
LOC: BIRAD 07:54
PROVIDERS: PCP Internal Medicine; Referring Provider Surgery; Visit Provider Surgery
DX: N63.10 Unspecified lump in the right breast, unspecified quadrant (principal); R92.8 Other abnormal and inconclusive findings on diagnostic imaging of breast
CPT/HCPCS: 19083; 88305

== ENCOUNTER → 2022-05-03 | Outpatient (CLI) | payer MEDICARE, SELFPAY ==
--- NOTE | 2022-05-03 10:55 | US_ITS ---
STUDY: ULTRASOUND BREAST - RIGHT REASON FOR EXAM: Female, 76 years old. 6 month follow-up following breast biopsy. TECHNIQUE: Axial and longitudinal images of the RIGHT breast were performed with a high resolution ultrasound transducer. # OF IMAGES: 6 COMPARISON: Comparison is made with prior study dated 10/24/2021. FINDINGS: RIGHT Breast: 1 cm x 0.9 cm x 0.9 cm well-defined hypoechoic nodule is seen at the 9 o''clock in the breast at 6 cm from the nipple. A tissue clip marker is seen in its peripheral portion. US/Breast Limited Unilateral IMPRESSION: Stable appearance of the 1 cm x 0.9 cm x 0.9 cm hypoechoic nodule at the 9 o''clock position of the breast at 6 hours of nipple. A tissue clip marker is seen along its peripheral aspect. ASSESSMENT CATEGORY: BIRADS Category 2: Benign. A letter regarding these results will be sent to the patient by the facility within 30 days. Electronically Signed: Angelo Looney MD at 14:26 EDT ,
== END | disposition home or self-care (01) ==
PROVIDERS: PCP Internal Medicine; Visit Provider Surgery
DX: N63.15 Unspecified lump in the right breast, overlapping quadrants (principal)
CPT/HCPCS: 76642

== ENCOUNTER → 2022-05-28 | Outpatient (CLI) | payer MEDICARE, SELFPAY ==
--- NOTE | 2022-05-28 16:49 | NEURO ---
NCS and/or EMG Patient Report Ordering Doctor: Aleena Barreto DATE OF SERVICE: 05/28/22 Indication: Left hand pain and numbness of digits 1-4 for the last 12 months. Evaluate for entrapment neuropathy. Findings: Nerve conduction studies were performed in the left upper extremity. The left median motor study recording the abductor pollicis brevis showed a normal amplitude, prolonged distal latency and mildly slowed conduction velocity. The left ulnar motor study recording the abductor digiti minimi showed a normal amplitude, normal distal latency and normal conduction velocity. No conduction block or focal slowing was present across the elbow. The left median sensory response recording digit two showed a reduced amplitude, prolonged latency and markedly slowed conduction velocity. The left ulnar sensory response recording digit five showed a borderline amplitude, normal latency and normal conduction velocity. The left radial sensory response recording over the extensor snuff box showed a normal amplitude, latency and conduction velocity. Needle EMG of the left upper extremity muscles was performed. No denervation was seen in any muscle. All motor unit morphology, activation and recruitment patterns were normal. Impression: This is an abnormal study. 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 The pathophysiology is predominantly demyelinating with evidence of some secondary sensory axon loss. These findings are compatible with the clinical diagnosis of carpal tunnel syndrome. Chuck Olsen D.O. Multi Select Codes Neurology Neurology Interp Codes: 02085-13 Musc test done w/n test comp (interp) and 15144-10 Nr cndj tst 5-6 studies (interp)
== END | disposition home or self-care (01) ==
LOC: PSN 15:45
PROVIDERS: PCP Internal Medicine; Referring Provider Internal Medicine; Visit Provider Internal Medicine
DX: M79.642 Pain in left hand (principal)
CPT/HCPCS: 95886; 95909

== ENCOUNTER → 2022-10-23 | Outpatient (CLI) | payer MEDICARE, SELFPAY ==
--- NOTE | 2022-10-23 09:53 | BI_ITS ---
MAMMOGRAPHY - BILATERAL SCREENING REASON FOR EXAM: Female, 77 years old. Routine annual screening examination. PERTINENT HISTORY: Non-contributory. History of prior left breast aspiration and prior right breast biopsy. TECHNIQUE: Digital bilateral breast betty (3D mammographic acquisition) in the CC and MLO projections. 2-D mediolateral oblique (MLO) and craniocaudad (CC) views of both breasts were obtained. CAD: Full Field Digital Mammography with Computer Added Detection was performed. COMPARISON: Comparison is made with prior study October 19, 2021 and October 24, 2021. FINDINGS: Breast Composition: The breasts are heterogeneously dense, which may obscure small masses. 1.5 cm well-defined oval nodular density with a tissue clip marker within it is seen in the upper outer quadrant of the right breast from prior biopsy. No other significant abnormalities are identified. There has been no significant change since the prior study. BI/SCRN MAMM (CAD)W/BETTY BILAT IMPRESSION: Stable bilateral screening mammogram. Yearly follow-up mammogram recommended. (A) ASSESSMENT CATEGORY: BIRADS Category 2: Benign. A letter regarding these results will be sent to the patient by the facility within 30 days. Approximately 10% of breast cancers are not detected by mammography. A normal mammogram should not delay biopsy of a clinically suspicious abnormality. [id number] Electronically Signed: Angelo Looney MD at 11:02 EDT ,
--- NOTE | 2022-10-23 10:01 | BD_ITS ---
STUDY: DUAL ENERGY X-RAY ABSORPTIOMETRY / DXA REASON FOR EXAM: Female, 77 years old. [id number] TECHNIQUE: Bone Mineral Density (BMD) measurements of lumbar spine and right forearm were obtained. The patient is status post bilateral hip replacement. COMPARISON: Comparison is made with prior study dated 03/14/2020. FINDINGS: Lumbar Spine (L1-L4): g/cm2 (0.778) / T-score (-1.8) / Z-score (0.5) Findings are suggestive of osteopenia with a moderate fracture risk. Right Forearm: g/cm2 (0.453) / T-score (-2.3) / Z-score (0.2) The T-Scores on the most recent prior examination were: Lumbar Spine (L1-L4): There has been worsening of bone density since the previous examination. BD/Dexa Bone Density Study IMPRESSION: The patient is considered osteopenic as outlined below according to World [place] Organization (WHO) criteria with a high fracture risk. There has been worsening of bone density since the previous examination. Reference Information: The T-score is the number of standard deviations above or below the standard which is normal for young adults at their peak bone mineral density. The World Health Organization (WHO) interprets the T-scores as follows: Above -1 Normal bone density Between -1 and -2.5 Osteopenia Equal to / or below -2.5 Osteoporosis As a practical clinical guideline, osteopenia may be graded as follows: Mild -1 through -1.5 Moderate -1.6 through -2.0 Severe -2.1 through -2.4 The Z-score is the number of standard deviations above or below age-matched controls. A Z-score of less than -1.5 would be considered abnormal. References: 1. NIH Osteoporosis and Related Bone Diseases www osteo.org 2. International Society for Clinical Densitometry www iscd.org 3. National Osteoporosis Foundation www nof.org Electronically Signed: Angelo Looney MD at 12:36 EDT ,
== END | disposition home or self-care (01) ==
LOC: OPBD 09:51
PROVIDERS: PCP Internal Medicine; Referring Provider Internal Medicine; Visit Provider Internal Medicine
DX: Z12.31 Encounter for screening mammogram for malignant neoplasm of breast (principal); Z78.0 Asymptomatic menopausal state
CPT/HCPCS: 77063; 77067; 77080

== ENCOUNTER → 2023-10-28 | Outpatient (CLI) | payer MEDICARE, SELFPAY ==
--- NOTE | 2023-10-28 10:07 | BI_ITS ---
MAMMOGRAPHY - BILATERAL SCREENING REASON FOR EXAM: Female, 78 years old. Routine annual screening examination. PERTINENT HISTORY: Non-contributory. Left breast aspiration. TECHNIQUE: Digital bilateral breast betty (3D mammographic acquisition) in the CC and MLO projections. 2-D mediolateral oblique (MLO) and craniocaudad (CC) views of both breasts were obtained. CAD: Full Field Digital Mammography with Computer Added Detection was performed. COMPARISON: Comparison is made with prior study October 23, 2022 and October 24, 2021. FINDINGS: Breast Composition: The breasts are heterogeneously dense, which may obscure small masses. A tissue clip marker is once again seen within a 1.5 cm nodular density in the upper slightly outer aspect of the right breast. No other significant abnormalities are identified. There has been no significant change since the prior study. BI/SCRN MAMM (CAD)W/BETTY BILAT IMPRESSION: Stable bilateral screening mammogram. Yearly follow-up mammogram recommended. (A) ASSESSMENT CATEGORY: BIRADS Category 2: Benign. A letter regarding these results will be sent to the patient by the facility within 30 days. Approximately 10% of breast cancers are not detected by mammography. A normal mammogram should not delay biopsy of a clinically suspicious abnormality. [id number] Electronically Signed: Angelo Looney MD at 11:26 EDT ,
== END | disposition home or self-care (01) ==
LOC: OPBI 10:07
PROVIDERS: PCP Internal Medicine; Referring Provider Internal Medicine; Visit Provider Internal Medicine
DX: Z12.31 Encounter for screening mammogram for malignant neoplasm of breast (principal)
CPT/HCPCS: 77063; 77067

== ENCOUNTER → 2024-07-22 | Outpatient (CLI) | payer MEDICARE, SELFPAY ==
--- NOTE | 2024-07-22 12:54 | ECHOCS_ITS ---
Reason For Study: MILD AORTIC STENOSIS Procedure This was a 2D Doppler, Color Flow transthoracic echocardiogram. The study was technically difficult. Exam performed in department. Left Ventricle Normal LV size. Left ventricular systolic function is normal. The left ventricular ejection fraction is 65 %. No regional wall motion abnormalities noted. Right Ventricle Normal RV size. Normal systolic function. Atria Normal left atrium. Normal right atrium. Mitral Valve There is mild mitral annular calcification. Mild-Moderate (1-2+) eccentric mitral valve insufficiency. Tricuspid Valve Normal tricuspid valve. Mild to moderate (1-2+) tricuspid valve insufficiency. Pulmonary artery systolic pressure is 40 mmHg. Aortic Valve Trisinus/trileaflet aortic valve. Moderate focal aortic valve calcification. Peak aortic valve gradient 56 mmHg. Mean aortic valve gradient 30 mmHg. Moderate aortic stenosis. Mild (1+) aortic valve insufficiency. Pulmonic Valve The pulmonic valve is not well visualized. Great Vessels Normal aortic root. The pulmonary artery is normal size. Inferior vena cava collapse with respiration. Pericardium/Pleural No pericardial effusion. Medication 22 gauge I.V. with prn adaptor inserted into left arm. Diluted definity 2.5ml given slow IV push to enhance endocardial definition. MMode/2D Measurements & Calculations LVIDd: 4.3 cm IVSd: 1.0 cm LVOT diam: 2.0 cm LVIDs: 2.8 cm LVPWd: 1.0 cm RVDd: 3.3 cm FS: 35.5 % LVOT area: 3.1 cm2 Ao root diam: 3.3 cm LAV(MOD-bp): 56.4 ml LVAd ap4: 32.5 cm2 LAV(MOD-bp) Indexed: 29.8 ml/m2 LVLd ap4: 8.2 cm LAV(MOD-sp2): 53.1 ml EDV(MOD-sp4): 105.8 ml LAV(MOD-sp4): 54.9 ml EDV(sp4-el): 109.7 ml LVAs ap4: 16.1 cm2 LVLs ap4: 6.4 cm ESV(MOD-sp4): 33.2 ml ESV(sp4-el): 34.7 ml EF(MOD-sp4): 68.7 % EF(sp4-el): 68.4 % SV(MOD-sp4): 72.6 ml SV(sp4-el): 75.0 ml LA A4 area: 19.7 cm2 SI(MOD-sp4): 38.4 ml/m2 LA dimension(2D): 3.3 cm RA A4 area: 15.7 cm2 TAPSE: 2.8 cm Time Measurements MV dec time: 0.22 sec Doppler Measurements & Calculations MV E max brady: 98.0 cm/sec Lat Peak E' Brady: 12.2 cm/sec Med Peak E' Brady: 9.6 cm/sec MV A max brady: 59.1 cm/sec E/E' lat: 8.0 E/E' med: 10.2 MV E/A: 1.7 Ao V2 max: 373.4 cm/sec AI max brady: 466.4 cm/sec LV V1 max: 195.6 cm/sec Ao max P.9 mmHg AI max P.0 mmHg LV V1 max P.3 mmHg Ao V2 mean: 257.5 cm/sec AI dec slope: 318.6 cm/sec2 LV V1 mean P.8 mmHg Ao mean P.2 mmHg AI P1/2t: 428.8 msec LV V1 mean: 158.2 cm/sec Ao V2 VTI: 89.4 cm LV V1 VTI: 53.5 cm AV (velocity ratio): 0.60 CHRISTIANO(I,D): 1.8 cm2 CHRISTIANO(V,D): 1.6 cm2 SV(LVOT): 163.2 ml PA V2 max: 99.4 cm/sec TR max brady: 303.9 cm/sec TR max P.9 mmHg ECHO/Echo Complete W/ Contrast Interpretation Summary Normal LV size. Left ventricular systolic function is normal. The left ventricular ejection fraction is 65 %. Mild-Moderate (1-2+) eccentric mitral valve insufficiency. Moderate focal aortic valve calcification. Mean aortic valve gradient 30 mmHg. Moderate aortic stenosis. Contrast injection was performed. Ordering Physician: Vianey Cantu Referring Physician: Vianey Cantu Performed By: Preeti Bills RDCS
== END | disposition home or self-care (01) ==
LOC: CVS 12:52
PROVIDERS: PCP Nurse Practitioner Family; Referring Provider Nurse Practitioner Family; Visit Provider Nurse Practitioner Family
DX: I35.0 Nonrheumatic aortic (valve) stenosis (principal)
CPT/HCPCS: 93306; Q9957; A4216; C8929

== ENCOUNTER → 2024-10-28 | Outpatient (CLI) | payer MEDICARE, SELFPAY ==
--- NOTE | 2024-10-28 09:50 | BI_ITS ---
EXAM: SCRN MAMM (CAD)W/BETTY BILAT DATE: 10/28/2024 CLINICAL HISTORY: F, Age 79 y/o , SCREENING BREAST CANCER RISK ASSESSMENT: Has not been calculated. TECHNIQUE: Bilateral screening digital breast tomosynthesis with 2D and 3D images. Computer aided detection. COMPARISON: Prior exam(s) dated 10/28/2023 and 10/23/2022. FINDINGS: TISSUE DENSITY: The breast tissue is composed of scattered area of fibroglandular density. Bilateral Breast Mammographic Findings: There are no suspicious masses, suspicious clustered microcalcifications, architectural distortion or secondary signs of malignancy identified in either breast. There has been no significant change since the prior study. Benign-appearing macrocalcifications and round microcalcifications are seen in both breasts. Well-circumscribed stable isodense masses are seen in both breasts. BI/SCRN MAMM (CAD)W/BETTY BILAT IMPRESSION: OVERALL FINAL ASSESSMENT: BIRADS 2 BENIGN FINDING RECOMMENDATION: Routine annual follow-up in 1 Year A letter with findings and recommendations will be mailed to the patient. Reading Location: [id number]
--- NOTE | 2024-10-28 09:52 | BD_ITS ---
PROCEDURE: DEXA BONE DENSITY STUDY 10/28/2024 REASON FOR EXAM: F, age 79 y/o . Postmenopausal. TECHNIQUE: DEXA scan of sites with data reported below. Scanner utilized: [employer]bf[employer]. [facility]ENCE LINKS: [facility] [place] [place] [facility] COMPARISON: DEXA examination dated 10/23/2022 FINDINGS: BMD and T-SCORES Lumbar spine: 0.946 g/cm2, T-score -0.7 Levels: L1 through L4 Right 1/3 radius: 0.567 g/cm2, T-score -2.1 Change from prior: 2.7%. The World Health Organization has defined the following categories based on bone density: Normal bone density: T-score equal to or greater than -1.0 Osteopenia: T-score between -1.0 and -2.5 Osteoporosis: T-score equal to or less than -2.5 FRAX (or Comparable) Fracture Risk Assessment: 10 Year Probability of Fracture: Not calculated due to no reportable hip. (Note: FRAX is not to be reported in setting of normal range bone density, osteoporosis on DEXA, known history of osteoporosis, prior osteoporotic hip or vertebral fracture, or for any patient undergoing pharmacological treatment for bone loss.) The National Osteoporosis Foundation (NOF) recommends pharmacological treatment for patients with a FRAX 10-year risk of 3% or higher for a hip fracture, or 20% or higher for a major osteoporotic fracture, to prevent osteoporosis and reduce fracture risk. The patient does meet the pharmacological treatment recommendations for prevention of osteoporosis. BD/Dexa Bone Density Study IMPRESSION: OSTEOPENIA. Recommend follow-up as clinically warranted. Reading Location: [id number]
== END | disposition home or self-care (01) ==
LOC: OPBD 09:48
PROVIDERS: PCP Nurse Practitioner Family; Referring Provider Nurse Practitioner Family; Visit Provider Nurse Practitioner Family
DX: Z12.31 Encounter for screening mammogram for malignant neoplasm of breast (principal); Z78.0 Asymptomatic menopausal state
CPT/HCPCS: 77063; 77067; 77080

== ENCOUNTER 2025-04-28 13:37 | Observation (INO) | payer MEDICARE, SELFPAY ==
[2025-04-28] VITALS (18 sets, daily range): BP systolic 105–180; BP diastolic 53–101; PULSE 56–148; RESP 12–33; TEMP 36.6–36.7; O2SAT 94–100; BMI 32.5; BMI 31.4
--- NOTE | 2025-04-28 13:54 | EKG12_ITS ---
Test Reason : PALPITATIONS Blood Pressure : */* mmHG Vent. Rate : 148 BPM Atrial Rate : * BPM P-R Int : * ms QRS Dur : 148 ms QT Int : 336 ms P-R-T Axes : * -36 131 degrees QTcB Int : 527 ms Critical Test Result: High HR Atrial fibrillation with rapid ventricular response Left axis deviation Left bundle branch block Abnormal ECG Confirmed by MELI WHEATLEY, OPAL ([id number]), primer expeditor and drier CARLOS DUEÑAS ([id number]) on 04/30/2025 10:46:31 AM Referred By: SHANNEN Confirmed By: OPAL GARRISON MD
[2025-04-28 14:04] LABS: Hematocrit 41.6 % (37-47); Hemoglobin 14.2 g/dL (12.0-15.0); Immature Granulocytes Count 0.030 X10^3/uL (0.0-0.0); Mean Corp Hgb Conc 34.1 g/dL (32-36); Mean Corpuscular Volume 91.2 fL (81-99); Mean Platelet Vol. 9.3 fl (6.2-12.0); NRBC Flagged by Analyzer 0 % (0-5); Platelet Count 324 K/mm3 (150-450); RBC Distribution Width CV 13.0 % (11.6-14.6); RBC Distribution Width SD 43.6 fl (35.1-43.9); Red Blood Count 4.56 M/mm3 (4.2-5.4); White Blood Count 9.0 K/mm3 (4.4-11.0)
--- NOTE | 2025-04-28 14:08 | EX.ED.DYSGE1 ---
HPI History of Present Illness Chief Complaint: Palpitations Detail of Chief Complaint: Palpitations, lightheadedness, chest pressure or shortness of breath Informant: patient and spouse/S.O. Onset/Context/Timing Onset: Today and Hours (Onset approximately 1230) Context: Sudden Onset Timing: Continuous Quality: Pressure tightness mid chest radiating to neck Location: Chest and neck Current Severity: Mild Maximum Severity: Moderate Worsened by: Nothing specific Relieved by: Nothing Associated Symptoms Associated Symptoms: Dyspnea with exertion and lightheadedness Narrative Narrative: Patient is a 79-year-old woman. She has history of aortic stenosis, coronary artery disease, hypercholesterolemia, hypothyroidism and hypertension. She has a history of nonsustained ventricular tachycardia. Patient does not have a history of fast heart rate or irregular heart rate. Review of cardiac history indicates she also has history of mitral valve prolapse. She states while at rest this afternoon she developed palpitations, chest discomfort, dyspnea and lightheadedness. After arrival in the emergency department she complained of the chest tightness rating to her neck. Patient denies headache, visual, ocular or auditory symptoms. Patient states her thyroid medicine has not been changed recently. She had a level checked in March and reports it was normal. She denies black or maroon-colored stool. She denies history of VTE. She has no risk factors for VTE. She does report swelling of her feet and ankles, which she attributes to her blood pressure medication. She denies history of congestive heart failure, orthopnea or PND. Prior similar symptoms: No Recent Illness/Hospitalization: No PFSH PFSH Medical History Vertigo Lactose intolerance Hypercholesterolemia CAD (coronary artery disease) MVP (mitral valve prolapse) Aortic stenosis Osteopenia CKD stage 3a, GFR 45-59 ml/min Heart murmur GERD (gastroesophageal reflux disease) Chronic UTI Breast mass, right Osteoporosis Right hip arthroplasty Hypothyroidism HTN (hypertension) NSVT (nonsustained ventricular tachycardia) Home Medications ?Medication ?Instructions ?Recorded ?Last Taken ?Type lisinopril 20 mg tablet 20 mg PO BID 08/23/18 Unknown History metoprolol succinate 100 mg 100 mg PO DAILY 08/23/18 Unknown History tablet,extended release 24 hr acetaminophen 500 mg tablet 1,000 mg (2 x 500 mg) PO Q8 07/29/20 Unknown Rx amitriptyline 50 mg tablet 50 mg PO QHS PRN Insomnia 08/19/24 Unknown History amlodipine 10 mg tablet 10 mg PO QDAY 08/19/24 Unknown History ascorbic acid (vitamin C) 1,000 mg 1 g PO QDAY 08/19/24 Unknown History tablet atorvastatin 20 mg tablet 20 mg PO QDAY 08/19/24 Unknown History calcium 600 mg (as 1 tab PO QDAY 08/19/24 Unknown History carbonate)-vitamin D3 5 mcg (200 unit) tablet levothyroxine 88 mcg tablet 88 mcg PO QDAY 08/19/24 Unknown History (Synthroid) multivitamin 1 tab PO QAM 08/19/24 Unknown History estradiol 0.01% (0.1 mg/gram) 1 g vaginal 2XW 09/23/24 Unknown History vaginal cream Allergy/AdvReac Type Severity Reaction Status Date / Time erythromycin base Allergy Nausea Verified 04/28/25 13:39 nitrofurantoin (From Allergy dizziness, Verified 04/28/25 13:39 Macrobid) headache sulfamethoxazole (From Allergy Nausea Verified 04/28/25 13:39 Bactrim) trimethoprim (From Bactrim) Allergy Nausea Verified 04/28/25 13:39 Family History Mother Diabetes Hypertension Alzheimers disease Father Hypertension Diabetes Brother CVA (cerebral vascular accident) Kidney disease Vascular dementia Surgical History History of arthroplasty of both hips H/O: hysterectomy Social History household members: spouse Smoking Status: Never smoker alcohol intake: never substance use type: does not use ROS ROS ED Constitutional Constitutional ED: Denies chills, fever(s), subjective or sweats Eyes Eyes: Denies blurry vision or change in vision ENT ENT ED: Denies ear pain or rhinorrhea Cardiovascular Cardiovascular: Reports chest pain, palpitations and racing heartbeat; Denies orthopnea or paroxysmal nocturnal dyspnea Respiratory/Chest Respiratory/Chest: Reports dyspnea and dyspnea on exertion; Denies cough, orthopnea or paroxysmal nocturnal dyspnea Gastrointestinal Gastrointestinal: Denies abdominal pain, melena, nausea or vomiting Genitourinary Genitourinary ED: Denies dysuria, hematuria or urinary frequency Musculoskeletal Musculoskeletal: Denies arthralgias or myalgias Integumentary Denies rash Neurologic Neurologic: Denies headache(s) Psychiatric Psychiatric: Denies anxiety Endocrine Endocrinology: Denies cold intolerance or heat intolerance Hematologic/Lymphatic Hematologic/Lymphatic: Reports systems reviewed and no addt'l complaints, except as documented EXAM Physical Exam Const Vital Signs: 04/28/25 13:37 04/28/25 13:52 04/28/25 14:00 Temperature 97.9 F Temperature Source Oral Pulse Rate 148 H 146 H Pulse Rate [1 (Initial Baseline)] Pulse Rate [3] Pulse Rate [4] Respiratory Rate 18 21 H Respiratory Rate [1 (Initial Baseline)] Respiratory Rate [3] Respiratory Rate [4] Respiratory Effort Blood Pressure 136/81 H 141/101 H Blood Pressure [1 (Initial Baseline)] Blood Pressure [3] Blood Pressure [4] Blood Pressure Mean 99 Baseline BP 141/101 Pulse Ox 99 97 Oxygen Delivery Method Room Air Room Air Oxygen Delivery Method [1 (Initial Baseline)] Oxygen Delivery Method [2] Oxygen Delivery Method [3] Oxygen Delivery Method [4] Oxygen Flow Rate (L/min) [3] EtCo2 - Document during CPR and with ROSC 33 EtCo2 - Document during CPR and with ROSC [1 (Initial Baseline)] EtCo2 - Document during CPR and with ROSC [3] EtCo2 - Document during CPR and with ROSC [4] 04/28/25 14:00 04/28/25 14:00 04/28/25 14:09 Temperature Temperature Source Pulse Rate 71 Pulse Rate [1 (Initial Baseline)] Pulse Rate [3] Pulse Rate [4] Respiratory Rate 23 H Respiratory Rate [1 (Initial Baseline)] Respiratory Rate [3] Respiratory Rate [4] Respiratory Effort Normal Non-Labored Blood Pressure 116/73 Blood Pressure [1 (Initial Baseline)] Blood Pressure [3] Blood Pressure [4] Blood Pressure Mean Baseline BP Pulse Ox 96 94 Oxygen Delivery Method Room Air Room Air Oxygen Delivery Method [1 (Initial Baseline)] Oxygen Delivery Method [2] Oxygen Delivery Method [3] Oxygen Delivery Method [4] Oxygen Flow Rate (L/min) [3] EtCo2 - Document during CPR and with ROSC 33 EtCo2 - Document during CPR and with ROSC [1 (Initial Baseline)] EtCo2 - Document during CPR and with ROSC [3] EtCo2 - Document during CPR and with ROSC [4] 04/28/25 14:12 04/28/25 14:12 04/28/25 14:15 Temperature Temperature Source Pulse Rate 70 65 Pulse Rate [1 (Initial Baseline)] 145 H Pulse Rate [3] 147 H Pulse Rate [4] 80 Respiratory Rate 18 16 Respiratory Rate [1 (Initial Baseline)] 22 H Respiratory Rate [3] 33 H Respiratory Rate [4] 20 H Respiratory Effort Blood Pressure 120/58 L 127/57 H Blood Pressure [1 (Initial Baseline)] 134/94 H Blood Pressure [3] 137/71 H Blood Pressure [4] 131/58 H Blood Pressure Mean Baseline BP Pulse Ox 97 95 Oxygen Delivery Method Room Air Room Air Oxygen Delivery Method [1 (Initial Baseline)] Room Air Oxygen Delivery Method [2] Room Air Oxygen Delivery Method [3] Room Air Oxygen Delivery Method [4] Room Air Oxygen Flow Rate (L/min) [3] 98 EtCo2 - Document during CPR and with ROSC 30 33 EtCo2 - Document during CPR and with ROSC [1 (Initial Baseline)] 32 EtCo2 - Document during CPR and with ROSC [3] 33 EtCo2 - Document during CPR and with ROSC [4] 34 04/28/25 14:18 04/28/25 14:21 04/28/25 15:25 Temperature Temperature Source Pulse Rate 67 66 59 L Pulse Rate [1 (Initial Baseline)] Pulse Rate [3] Pulse Rate [4] Respiratory Rate 17 16 18 Respiratory Rate [1 (Initial Baseline)] Respiratory Rate [3] Respiratory Rate [4] Respiratory Effort Blood Pressure 108/93 H 142/53 H 147/72 H Blood Pressure [1 (Initial Baseline)] Blood Pressure [3] Blood Pressure [4] Blood Pressure Mean 97 Baseline BP Pulse Ox 95 95 99 Oxygen Delivery Method Room Air Room Air Room Air Oxygen Delivery Method [1 (Initial Baseline)] Oxygen Delivery Method [2] Oxygen Delivery Method [3] Oxygen Delivery Method [4] Oxygen Flow Rate (L/min) [3] EtCo2 - Document during CPR and with ROSC 33 34 EtCo2 - Document during CPR and with ROSC [1 (Initial Baseline)] EtCo2 - Document during CPR and with ROSC [3] EtCo2 - Document during CPR and with ROSC [4] 04/28/25 16:17 Temperature Temperature Source Pulse Rate 97 Pulse Rate [1 (Initial Baseline)] Pulse Rate [3] Pulse Rate [4] Respiratory Rate 18 Respiratory Rate [1 (Initial Baseline)] Respiratory Rate [3] Respiratory Rate [4] Respiratory Effort Blood Pressure 105/90 H Blood Pressure [1 (Initial Baseline)] Blood Pressure [3] Blood Pressure [4] Blood Pressure Mean 95 Baseline BP Pulse Ox 100 Oxygen Delivery Method Oxygen Delivery Method [1 (Initial Baseline)] Oxygen Delivery Method [2] Oxygen Delivery Method [3] Oxygen Delivery Method [4] Oxygen Flow Rate (L/min) [3] EtCo2 - Document during CPR and with ROSC EtCo2 - Document during CPR and with ROSC [1 (Initial Baseline)] EtCo2 - Document during CPR and with ROSC [3] EtCo2 - Document during CPR and with ROSC [4] Positive well nourished and well developed Constitutional Narrative: Patient's vitals are remarkable for rapid heart rate. She is not hypoxic. She is slightly anxious. General Appearance ED: well developed; Negative for pallor HEENT Reports moist mucous membranes HEENT Narrative: Head is atraumatic and normocephalic. Ears normal. Nares patent. Eyes PERRL and EOMs intact bilaterally General Eye ED: Negative for pale conjunctiva or scleral icterus Neck no lymphadenopathy, supple and no JVD Neck Narrative: There is no thyromegaly. Chest Wall inspection of chest normal and palpation of chest normal Resp normal respiratory effort and clear to auscultation bilaterally Cardio no murmurs Rate: tachycardic Rhythm: abnormal rhythm irregularly irregular GI normal to inspection, nondistended, normoactive bowel sounds, non-tender, non-distended and no masses; Negative for hepatosplenomegaly Extremity Extremity Narrative: Otherwise normal General Extremety ED: Yes edema General Extremity: edema Neuro oriented x3 and CN's II-XII intact bilaterally Sensorium / Orientation: alert Psych Mood & Affect: anxious Skin no rashes or lesions noted, no wounds and skin turgor normal General Skin Exam: Negative for jaundice or pallor MDM MDM MDM Narrative Medical decision making narrative: Patient with A-fib with RVR. With history of coronary disease multiple cardiac risk factors complaining of chest tightness rating to her jaw with dyspnea explained options are [id number], chemical medication to convert and control rate versus cardioversion. In light of the fact that she has chest tightness dyspnea with coronary disease after explaining risk benefits cardioversion was selected as a treatment option. Patient has no allergies to soy products or egg products. She has had no complications with anesthesia. Patient had some soup at 1230. Will obtain EKG, chest x-ray and appropriate blood work to evaluate her presentation. Lab Data Attestation: I reviewed the patient's lab results. Lab results narrative: CBC is unremarkable basic metabolic panel is remarkable for glucose of 186 with normal CO2 anion gap. Estimated GFR is 54. UN and creatinine are 18 and 1.05. TSH is normal at 3.16. First troponin is 14, which is normal. Labs: Laboratory Results - last 24 hr 04/28/25 04/28/25 13:54 16:14 WBC 9.0 RBC 4.56 Hgb 14.2 Hct 41.6 MCV 91.2 MCH 31.1 MCHC 34.1 RDW Std Deviation 43.6 RDW Coeff of Kev 13.0 Plt Count 324 MPV 9.3 Immature Gran % (Auto) 0.300 Neut % (Auto) 65.7 Lymph % (Auto) 24.4 [place] % (Auto) 7.2 Eos % (Auto) 2.0 Baso % (Auto) 0.4 Absolute Neuts (auto) 5.9 Absolute Lymphs (auto) 2.19 Nucleated RBC % 0 Sodium 134 Potassium 4.5 Chloride 97 L Carbon Dioxide 24.7 Anion Gap 13 BUN 18 Creatinine 1.05 Estim Creat Clear Calc 48.63 L Est GFR (MDRD) Non-Af 54 L BUN/Creatinine Ratio 16.7 Glucose 186 H Calcium 9.9 Troponin T High Sens 14 Troponin T Hi Sens 2 Hr 56 H* TSH 3.160 Radiography Chest X-Ray - ED: 1 View, Read by ED Physician, Normal, Heart, Lungs (Minimal chronic changes noted.), Mediastinum, Bony Structures (Chronic's degenerative changes noted.) and No Acute Disease Diagnostic Testing: Clinical Impression(s) from Imaging Studies Chest X-Ray 04/28/25 14:35 IMPRESSION: No Acute Findings. Reading Location: [facility] EKG Initial EKG: Attestation: I personally reviewed and interpreted this EKG as follows: Interpretation: Atrial Fibrillation (Rate is 148. QRS duration 148 ms. QT duration 336 ms. QTc is 527 ms. [place] is to the left. Patient has a left bundle branch pattern with repolarization changes noted. This is changed from prior which was dated July 28, 2020) Follow-up EKG: Attestation: I personally reviewed and interpreted this EKG as follows: Interpretation: Sinus Tachycardia (EKG after cardioversion reveals sinus tachycardia with a short MD and rate of 120. MD is 90 ms. QRS duration 122 ms. QT is 268 with a QTc of 378. There is evidence of LVH and a nonspecific intraventricular conduction delay.) Comments: 3. EKG was obtained and reveals a sinus rhythm with occasional premature ventricular beat. Rate is 81. MD interval is under 46 ms. QRS duration is 110 ms. QT duration is 136 ms. Patient has some nonseptic changes which may be repolarization due to LVH. This is different than EKG that was obtained July 28, 2020. Management Discussion w/another healthcare provider: Hospitalist ([employer] Tube Bender was asked to page hospitalist at 1700 for serial enzymes and potential PE workup.) and [employer] Machine Operator (Spoke with Dr. Polanco and on-call for cardiology. He requested a D-dimer and admission.) Procedures Procedural Sedation 1 (Initial Baseline): Consent Signed: Yes Any Problems With Anesthesia: No You/Your family experience fever (hyperthermia) w/anesthesia: No Sedation medication: Propofol Dose: 70 Route: IV Total Moderate Sedation Units: 5 Maliampati Score: Class I ASA Classification: E and II Comment:: Patient was successfully cardioverted with 200 J on first attempt. Discharge Plan Dx/Rx/DC Orders Clinical Impression: Atrial fibrillation with RVR, Chest tightness, Elevated troponin, CAD (coronary artery disease), Hypercholesterolemia, Hypothyroidism, HTN (hypertension) Disposition Disposition: Acute Care [facility]
--- NOTE | 2025-04-28 14:10 | EKG12_ITS ---
Test Reason : AFIB Blood Pressure : */* mmHG Vent. Rate : 120 BPM Atrial Rate : 120 BPM P-R Int : 96 ms QRS Dur : 122 ms QT Int : 268 ms P-R-T Axes : * -8 148 degrees QTcB Int : 378 ms Sinus tachycardia with short AL with Fusion complexes Left ventricular hypertrophy with QRS widening and repolarization abnormality ( R in aVL , Freer product ) Abnormal ECG Confirmed by MELI WHEATLEY, OPAL ([id number]), script editor CARLOS DUEÑAS ([id number]) on 04/30/2025 10:46:41 AM Referred By: LIAM Confirmed By: OPAL GARRISON MD
--- NOTE | 2025-04-28 14:11 | EKG12_ITS ---
Test Reason : AFIB Blood Pressure : */* mmHG Vent. Rate : 81 BPM Atrial Rate : 81 BPM P-R Int : 146 ms QRS Dur : 110 ms QT Int : 336 ms P-R-T Axes : 61 -5 109 degrees QTcB Int : 390 ms Sinus rhythm with occasional Premature ventricular complexes Left ventricular hypertrophy with repolarization abnormality ( R in aVL , [place] product , Romhilt-Gutierrez ) Inferior infarct , age undetermined Abnormal ECG Confirmed by MELI WHEATLEY, OPAL ([id number]), primer expeditor and drier CARLOS DUEÑAS ([id number]) on 04/30/2025 10:46:52 AM Referred By: LIAM Confirmed By: OPAL GARRISON MD
[2025-04-28 14:30] LABS: Troponin T High Sensitivity 14 ng/L (<=14)
--- NOTE | 2025-04-28 14:35 | RAD_ITS ---
PROCEDURE: CHEST 1 VIEW (PORTABLE) 04/28/2025 REASON FOR EXAM: DYSPNEA, CHEST TIGHTNESS TECHNIQUE: Frontal view of the chest. COMPARISON: None FINDINGS: Hardware: EKG electrodes are seen. Heart: The heart size is normal. There is calcification of the aortic arch. Lungs: The lungs are clear. Bones: Degenerative changes are identified within the thoracic spine. RAD/Chest 1 View (Portable) IMPRESSION: No Acute Findings. Reading Location: [facility]
[2025-04-28 14:39] LABS: Anion Gap 13 (5-15); BUN 18 mg/dL (4-19); BUN/Creat Ratio 16.7 RATIO (10-20); Calcium,Total 9.9 mg/dL (7.6-11.0); Carbon Dioxide 24.7 mmol/L (21.0-32.0); Chloride 97 mmol/L (98-108); Estimated Creatinine Clearance 48.63 ml/min (50-250); Glucose 186 mg/dL (70-99); Potassium 4.5 mmol/L (3.3-5.1)
[2025-04-28] MEDS: APIXABAN 5 MG TABLET PO (15:20)
[2025-04-28 16:50] LABS: Troponin T High Sens 2 HR 56 ng/L (<=14)
--- NOTE | 2025-04-28 17:15 | PCM.HP.STD ---
HPI - General General Date of Admission: 04/28/25 Date of Service: 04/28/25 Chief Complaint: Chest pain and palpitations HPI Narrative VIRA GIORDANO, is a 79 F who presented to [facility] ED on 04/28/2025 with chest pain and palpitations. Follows with outpatient cardiology, medical history significant for moderate aortic stenosis, nonsustained V. tach, hypertension and hyperlipidemia. No prior history of A-fib. In the ED she was noted to be in A-fib with RVR with rate to the 140s. She remained normotensive and stable on room air at rest. Given patient had significant symptoms with this and onset was around 12:30 PM today, ED physician made the decision to proceed with cardioversion. Patient was successfully cardioverted back to normal sinus rhythm. Postconversion patient reported significant improvement in her chest pain and discomfort. Labs notable for troponin trend 14 > 56. CBC and BMP were otherwise benign. However, given her cardiac history and uptrending troponins, hospitalist was contacted for admission. I saw the patient at bedside in the ED, is present. Patient was sitting back comfortably in bed, conversing normally, in no acute distress. She denied any chest pain, shortness of breath or palpitations currently. Noted that she was feeling well recently, no prior episodes of chest pain or palpitations like this today. No recent illnesses noted. No other acute concerns currently. Will be admitted for further management. [facility] Medical History (Updated 04/28/25 @ 18:53 by Oliver Mackey) Vertigo Lactose intolerance Hypercholesterolemia CAD (coronary artery disease) Aortic stenosis Osteopenia CKD stage 3a, GFR 45-59 ml/min Heart murmur GERD (gastroesophageal reflux disease) Chronic UTI Breast mass, right Osteoporosis Right hip arthroplasty Hypothyroidism HTN (hypertension) NSVT (nonsustained ventricular tachycardia) Home Medications ?Medication ?Instructions ?Recorded ?Last Taken ?Type lisinopril 20 mg tablet 20 mg PO BID 08/23/18 04/28/25 08:00 History metoprolol succinate 100 mg 100 mg PO QHS 08/23/18 04/27/25 History tablet,extended release 24 hr amitriptyline 50 mg tablet 50 mg PO QHS Insomnia 08/19/24 04/27/25 History amlodipine 10 mg tablet 10 mg PO .morning 08/19/24 04/28/25 History ascorbic acid (vitamin C) 1,000 mg 1 g PO QDAY 08/19/24 04/28/25 History tablet atorvastatin 20 mg tablet 20 mg PO QDAY 08/19/24 04/27/25 History calcium 600 mg (as 1 tab PO QDAY 08/19/24 04/28/25 History carbonate)-vitamin D3 5 mcg (200 unit) tablet levothyroxine 88 mcg tablet 88 mcg PO QDAY 08/19/24 04/28/25 History (Synthroid) multivitamin 1 tab PO QAM 08/19/24 04/28/25 History estradiol 0.01% (0.1 mg/gram) 1 g vaginal 2XW 09/23/24 04/25/25 History vaginal cream Allergy/AdvReac Type Severity Reaction Status Date / Time erythromycin base Allergy Nausea Verified 04/28/25 13:39 nitrofurantoin (From Allergy dizziness, Verified 04/28/25 13:39 Macrobid) headache sulfamethoxazole (From Allergy Nausea Verified 04/28/25 13:39 Bactrim) trimethoprim (From Bactrim) Allergy Nausea Verified 04/28/25 13:39 Family History Mother Diabetes Hypertension Alzheimers disease Father Hypertension Diabetes Brother CVA (cerebral vascular accident) Kidney disease Vascular dementia Surgical History History of arthroplasty of both hips H/O: hysterectomy Social History household members: spouse Smoking Status: Never smoker alcohol intake: never substance use type: does not use ROS Constitutional Constitutional: Denies chills, fatigue, fever(s) or weakness Eyes Eyes: Denies change in vision Cardiovascular Cardiovascular: Denies chest pain, dyspnea on exertion, edema, lightheadedness, orthopnea or palpitations Respiratory/Chest Respiratory/Chest: Denies cough, shortness of breath at rest or wheezing Gastrointestinal Gastrointestinal: Denies abdominal pain Musculoskeletal Musculoskeletal: Denies arthralgias or myalgias Neurologic Neurologic: Denies dizziness, focal weakness or headache(s) Vital Signs Vital Signs Vital Signs: 04/28/25 13:37 04/28/25 13:52 04/28/25 14:00 Temperature 97.9 F Temperature Source Oral Pulse Rate 148 H 146 H Pulse Rate [1 (Initial Baseline)] Pulse Rate [3] Pulse Rate [4] Respiratory Rate 18 21 H Respiratory Rate [1 (Initial Baseline)] Respiratory Rate [3] Respiratory Rate [4] Respiratory Effort Blood Pressure 136/81 H 141/101 H Blood Pressure [1 (Initial Baseline)] Blood Pressure [3] Blood Pressure [4] Blood Pressure Mean 99 Baseline BP 141/101 Pulse Ox 99 97 Oxygen Delivery Method Room Air Room Air Oxygen Delivery Method [1 (Initial Baseline)] Oxygen Delivery Method [2] Oxygen Delivery Method [3] Oxygen Delivery Method [4] Oxygen Flow Rate (L/min) [3] EtCo2 - Document during CPR and with ROSC 33 EtCo2 - Document during CPR and with ROSC [1 (Initial Baseline)] EtCo2 - Document during CPR and with ROSC [3] EtCo2 - Document during CPR and with ROSC [4] 04/28/25 14:00 04/28/25 14:00 04/28/25 14:09 Temperature Temperature Source Pulse Rate 71 Pulse Rate [1 (Initial Baseline)] Pulse Rate [3] Pulse Rate [4] Respiratory Rate 23 H Respiratory Rate [1 (Initial Baseline)] Respiratory Rate [3] Respiratory Rate [4] Respiratory Effort Normal Non-Labored Blood Pressure 116/73 Blood Pressure [1 (Initial Baseline)] Blood Pressure [3] Blood Pressure [4] Blood Pressure Mean Baseline BP Pulse Ox 96 94 Oxygen Delivery Method Room Air Room Air Oxygen Delivery Method [1 (Initial Baseline)] Oxygen Delivery Method [2] Oxygen Delivery Method [3] Oxygen Delivery Method [4] Oxygen Flow Rate (L/min) [3] EtCo2 - Document during CPR and with ROSC 33 EtCo2 - Document during CPR and with ROSC [1 (Initial Baseline)] EtCo2 - Document during CPR and with ROSC [3] EtCo2 - Document during CPR and with ROSC [4] 04/28/25 14:12 04/28/25 14:12 04/28/25 14:15 Temperature Temperature Source Pulse Rate 70 65 Pulse Rate [1 (Initial Baseline)] 145 H Pulse Rate [3] 147 H Pulse Rate [4] 80 Respiratory Rate 18 16 Respiratory Rate [1 (Initial Baseline)] 22 H Respiratory Rate [3] 33 H Respiratory Rate [4] 20 H Respiratory Effort Blood Pressure 120/58 L 127/57 H Blood Pressure [1 (Initial Baseline)] 134/94 H Blood Pressure [3] 137/71 H Blood Pressure [4] 131/58 H Blood Pressure Mean Baseline BP Pulse Ox 97 95 Oxygen Delivery Method Room Air Room Air Oxygen Delivery Method [1 (Initial Baseline)] Room Air Oxygen Delivery Method [2] Room Air Oxygen Delivery Method [3] Room Air Oxygen Delivery Method [4] Room Air Oxygen Flow Rate (L/min) [3] 98 EtCo2 - Document during CPR and with ROSC 30 33 EtCo2 - Document during CPR and with ROSC [1 (Initial Baseline)] 32 EtCo2 - Document during CPR and with ROSC [3] 33 EtCo2 - Document during CPR and with ROSC [4] 34 04/28/25 14:18 04/28/25 14:21 04/28/25 15:25 Temperature Temperature Source Pulse Rate 67 66 59 L Pulse Rate [1 (Initial Baseline)] Pulse Rate [3] Pulse Rate [4] Respiratory Rate 17 16 18 Respiratory Rate [1 (Initial Baseline)] Respiratory Rate [3] Respiratory Rate [4] Respiratory Effort Blood Pressure 108/93 H 142/53 H 147/72 H Blood Pressure [1 (Initial Baseline)] Blood Pressure [3] Blood Pressure [4] Blood Pressure Mean 97 Baseline BP Pulse Ox 95 95 99 Oxygen Delivery Method Room Air Room Air Room Air Oxygen Delivery Method [1 (Initial Baseline)] Oxygen Delivery Method [2] Oxygen Delivery Method [3] Oxygen Delivery Method [4] Oxygen Flow Rate (L/min) [3] EtCo2 - Document during CPR and with ROSC 33 34 EtCo2 - Document during CPR and with ROSC [1 (Initial Baseline)] EtCo2 - Document during CPR and with ROSC [3] EtCo2 - Document during CPR and with ROSC [4] 04/28/25 16:17 Temperature Temperature Source Pulse Rate 97 Pulse Rate [1 (Initial Baseline)] Pulse Rate [3] Pulse Rate [4] Respiratory Rate 18 Respiratory Rate [1 (Initial Baseline)] Respiratory Rate [3] Respiratory Rate [4] Respiratory Effort Blood Pressure 105/90 H Blood Pressure [1 (Initial Baseline)] Blood Pressure [3] Blood Pressure [4] Blood Pressure Mean 95 Baseline BP Pulse Ox 100 Oxygen Delivery Method Oxygen Delivery Method [1 (Initial Baseline)] Oxygen Delivery Method [2] Oxygen Delivery Method [3] Oxygen Delivery Method [4] Oxygen Flow Rate (L/min) [3] EtCo2 - Document during CPR and with ROSC EtCo2 - Document during CPR and with ROSC [1 (Initial Baseline)] EtCo2 - Document during CPR and with ROSC [3] EtCo2 - Document during CPR and with ROSC [4] Weight Weight: 88.904 kg Body Mass Index (BMI) 32.5 Physical Exam Const alert, oriented x3 and no apparent distress Constitutional Narrative: Pleasant elderly female, class I obesity, sitting back comfortably in bed, conversing normally, in no acute distress. General Appearance: cooperative and comfortable HEENT normocephalic, head/scalp atraumatic, hearing grossly normal bilaterally, nasal mucous membranes and turbinates normal and moist oral mucous membranes Eyes PERRL, EOMs intact bilaterally and conjunctivae normal Neck full ROM Chest inspection of chest normal Resp normal respiratory effort, normal air movement, no use of accessory muscles and clear to auscultation bilaterally Cardio regular rate, regular rhythm, no murmurs and peripheral pulses 2+ throughout GI normal to inspection, nondistended, normoactive bowel sounds, soft to palpation, non-tender and non-distended Back/Spine normal ROM Extremity normal to inspection, full ROM and no pedal edema Skin no rashes or lesions noted Psych mental status grossly normal Results Lab / Micro Data 04/28/25 13:54 04/28/25 13:54 Labs: Laboratory Results - last 24 hr 04/28/25 13:54: WBC 9.0, RBC 4.56, Hgb 14.2, Hct 41.6, MCV 91.2, MCH 31.1, MCHC 34.1, RDW Std Deviation 43.6, RDW Coeff of Kev 13.0, Plt Count 324, MPV 9.3, Immature Gran % (Auto) 0.300, Neut % (Auto) 65.7, Lymph % (Auto) 24.4, [place] % (Auto) 7.2, Eos % (Auto) 2.0, Baso % (Auto) 0.4, Absolute Neuts (auto) 5.9, Absolute Lymphs (auto) 2.19, Nucleated RBC % 0, Sodium 134, Potassium 4.5, Chloride 97 L, Carbon Dioxide 24.7, Anion Gap 13, BUN 18, Creatinine 1.05, Estim Creat Clear Calc 48.63 L, Est GFR (MDRD) Non-Af 54 L, BUN/Creatinine Ratio 16.7, Glucose 186 H, Calcium 9.9, Troponin T High Sens 14, TSH 3.160 04/28/25 16:14: Troponin T Hi Sens 2 Hr 56 H* Imaging Radiology Impression Chest X-Ray 04/28/25 14:35 IMPRESSION: No Acute Findings. Reading Location: [facility] Assessment & Plan Assessment/Plan (1) Atrial fibrillation with RVR: (2) Elevated troponin: PLAN: Plan Patient is a 79-year-old female who presented [facility] on 04/28/2025 with chest pain and palpitations. 1. New onset A-fib with RVR s/p cardioversion, elevated troponins ? Admit under observation status to PCU. Presented to new onset A-fib with RVR. Symptoms began only a few hours prior to arrival to the ED. S/p DCCV in the ED with successful return of normal sinus rhythm. Patient with resolution of chest pain and palpitations post cardioversion. Troponin trend 14 > 56 > 82. Highly suspect uptrending troponins are secondary to cardioversion given symptoms have resolved. Most recent echo in July as below, will repeat echocardiogram at this time. Monitor cardiac telemetry overnight. Patient was given 1 dose of Eliquis in the ED; will hold on anticoagulation at this time. If patient remains stable tomorrow, should be fine for discharge home with close outpatient follow-up with cardiology. 2. History of moderate aortic stenosis, history of nonsustained V. tach, hypertension, hyperlipidemia ? Follows with cardiology, last office visit in August. Last echo in July showed EF 65%, moderate aortic stenosis, mild to moderate MVR and TVR, no other concerning findings. Hypertensive to the 150s to 160s systolic post cardioversion. Will continue home amlodipine, Toprol and lisinopril. Continue home statin. 3. Hypothyroidism ? TSH on admit normal. Continue home Synthroid. DVT prophylaxis: Lovenox CODE STATUS: Full code, verified Expected disposition: Home, 1 to 2 days Total clinical time spent by myself addressing the patient's medical issues, reviewing all the data, and collaborating with patient's care team: 61 minutes. Charges/Coding Visit Charges Inpatient E&M: 94027 Init Hosp L2
--- NOTE | 2025-04-28 17:48 | ECHOD_ITS ---
Reason For Study Reason For Study: ATRIAL FIB/FLUTTER Procedure This was a 2D Doppler, Color Flow transthoracic echocardiogram. The study was technically difficult. Exam performed portable in patient room. Left Ventricle Normal LV size. Left ventricular systolic function is normal. The left ventricular ejection fraction is 65 %. No regional wall motion abnormalities noted. Right Ventricle Normal RV size. Normal systolic function. Atria Normal left atrium. Normal right atrium. Mitral Valve Normal mitral valve. Mild-Moderate (1-2+) eccentric mitral valve insufficiency. Tricuspid Valve Normal tricuspid valve. Mild (1+) tricuspid valve insufficiency. Pulmonary artery systolic pressure is 36 mmHg. Aortic Valve Trisinus/trileaflet aortic valve. Moderate focal aortic valve calcification. Peak aortic valve gradient 55 mmHg. Mean aortic valve gradient 33 mmHg. Moderate to severe aortic stenosis. Mild (1+) eccentric aortic valve insufficiency. Pulmonic Valve Normal pulmonic valve. Great Vessels Mildly calcified aortic root. The pulmonary artery is normal size. Inferior vena cava collapse with respiration. Pericardium/Pleural No pericardial effusion. MMode/2D Measurements & Calculations LVIDd: 5.3 cm IVSd: 0.77 cm LVOT diam: 2.0 cm LVIDs: 3.3 cm LVPWd: 1.1 cm LVOT area: 3.1 cm2 RVDd: 3.7 cm FS: 37.9 % Ao root diam: 3.6 cm LAV(MOD-bp): 54.2 ml LVAd ap4: 31.3 cm2 LAV(MOD-bp) Indexed: 28.1 ml/m2 LVLd ap4: 8.1 cm LAV(MOD-sp2): 52.3 ml EDV(MOD-sp4): 99.2 ml LAV(MOD-sp4): 50.3 ml EDV(sp4-el): 102.5 ml LVAs ap4: 16.1 cm2 LVLs ap4: 6.8 cm ESV(MOD-sp4): 31.5 ml ESV(sp4-el): 32.4 ml EF(MOD-sp4): 68.2 % EF(sp4-el): 68.3 % LVAd ap2: 26.7 cm2 SV(MOD-sp4): 67.7 ml SV(MOD-sp2): 52.0 ml LVLd ap2: 7.9 cm SI(MOD-sp4): 35.1 ml/m2 SI(MOD-sp2): 27.0 ml/m2 EDV(MOD-sp2): 75.1 ml EDV(sp2-el): 76.2 ml LVAs ap2: 13.7 cm2 LVLs ap2: 6.9 cm ESV(MOD-sp2): 23.1 ml ESV(sp2-el): 23.0 ml EF(MOD-sp2): 69.3 % SV(sp4-el): 70.0 ml LA dimension(2D): 3.8 cm LA A4 area: 19.1 cm2 RA A4 area: 13.6 cm2 TAPSE: 2.1 cm Time Measurements MV dec time: 0.18 sec Doppler Measurements & Calculations MV E max brady: 90.2 cm/sec Lat Peak E' Brady: 9.6 cm/sec Med Peak E' Brady: 8.3 cm/sec MV A max brady: 78.2 cm/sec E/E' lat: 9.4 E/E' med: 10.9 MV E/A: 1.2 MV V2 max: 85.5 cm/sec Ao V2 max: 371.1 cm/sec MV max P.9 mmHg MV dec slope: 495.8 cm/sec2 Ao max P.2 mmHg MV V2 mean: 45.2 cm/sec Ao V2 mean: 275.6 cm/sec MV mean P.99 mmHg Ao mean P.9 mmHg MV V2 VTI: 28.0 cm Ao V2 VTI: 97.2 cm AV (velocity ratio): 0.57 MVA(VTI): 6.1 cm2 CHRISTIANO(I,D): 1.7 cm2 CHRISTIANO(V,D): 1.6 cm2 AI max brady: 446.5 cm/sec LV V1 max: 197.5 cm/sec SV(LVOT): 169.6 ml AI max P.0 mmHg LV V1 max P.6 mmHg AI dec slope: 231.5 cm/sec2 LV V1 mean P.3 mmHg AI P1/2t: 564.9 msec LV V1 mean: 152.7 cm/sec LV V1 VTI: 54.9 cm PA V2 max: 90.5 cm/sec TR max brady: 289.2 cm/sec TR max P.5 mmHg ECHO/Echo Complete Interpretation Summary Left ventricular systolic function is normal. Normal LV size. The left ventricular ejection fraction is 65 %. Moderate focal aortic valve calcification. Mean aortic valve gradient 33 mmHg. Ordering Physician: Loki Olivares Referring Physician: Vianey Cantu Performed By: Ronnie Hale RDCS
[2025-04-28 18:08] LABS: D-Dimer Quantitative (DVT/PE) 0.45 FEU/ug/m (0.27-0.49)
[2025-04-28 18:39] LABS: Troponin T High Sens 4 HR 82 ng/L (<=14)
[2025-04-28] MEDS: Metoprolol(XL)Succ 100 MG Tablet PO (21:12)
[2025-04-29 04:30] VITALS: BP 137/66; PULSE 49; RESP 12; TEMP 36.6; O2SAT 98
[2025-04-29 04:57] LABS: Hematocrit 37.5 % (37-47); Hemoglobin 12.8 g/dL (12.0-15.0); Mean Corp Hgb Conc 34.1 g/dL (32-36); Mean Corpuscular Volume 89.9 fL (81-99); Mean Platelet Vol. 9.3 fl (6.2-12.0); Platelet Count 313 K/mm3 (150-450); RBC Distribution Width CV 13.1 % (11.6-14.6); RBC Distribution Width SD 43.2 fl (35.1-43.9); Red Blood Count 4.17 M/mm3 (4.2-5.4); White Blood Count 8.4 K/mm3 (4.4-11.0)
[2025-04-29 05:14] LABS: Anion Gap 10 (5-15); BUN 14 mg/dL (4-19); BUN/Creat Ratio 13.3 RATIO (10-20); Calcium,Total 9.7 mg/dL (7.6-11.0); Carbon Dioxide 24.5 mmol/L (21.0-32.0); Chloride 103 mmol/L (98-108); Estimated Creatinine Clearance 47.73 ml/min (50-250); Glucose 102 mg/dL (70-99); Potassium 4.5 mmol/L (3.3-5.1)
[2025-04-29 07:14] VITALS: O2SAT 96
[2025-04-29 10:30] VITALS: BP 145/66; PULSE 58; RESP 16; TEMP 36.9; O2SAT 99
[2025-04-29] MEDS: Calcium Carb/Vitamin D 1 TABLET Tablet PO (10:35)
--- NOTE | 2025-04-29 13:06 | CHAPLAIN ---
Type of Pastoral Visit _x__ Initial Visit ___ Follow-up Visit ___ On-call Visit ___ General Patient Visit ___ Spiritual Assessment ___ Family Conference ___ Bereavement ___ Rapid Response ___ Code Blue ___ Other (describe below) Pastoral Care Referral From _x__ Patient ___ Family ___ Nurse ___ Physician ___ Curator Of Photography And Prints ___ Program Manager ___ Other (describe below) Sacrament/Intervention _x__ Active listening ___ Anointing ___ Latter-Day ___ Bereavement ___ Communion ___ Vicki exploration ___ _x__ Life review _x__ Prayer ___ Reconciliation ___ Sacrament of Sick _x__ Supportive presence ___ Wedding ___ Other (describe below) Pastoral Comments patient is pleasant and very welcoming of spiritual care; pt's is known to this software applications architect but he is not present at this time; pt describes her sudden change in health and what was done to address that; pt is content and thankful for the intervention and gives credit to God and medical team; pt has good support from family and quaker; pt welcomes prayer; a good friend came into room to visit the patient and she interacts with this software applications architect too; visitor will have a doctor's appointment tomorrow and she is given prayer as well for it
[2025-04-29 14:10] VITALS: BP 144/63; PULSE 62; RESP 16; TEMP 36.6; O2SAT 98
--- NOTE | 2025-04-29 15:15 | CASEMGMT ---
Met with patient to review PATRICK form. PATRICK form and its content were verbally explained and patient?s questions were answered to the best of my ability. Patient voiced understanding and signed PATRICK form. Patient provided a copy of signed PATRICK form and original placed in patient?s chart. Patient had no further questions or concerns. Also discussed DC planning. Pt states that she lives at home and that she is indep. Pt denies any homegoing or DC needs. Pt states that she feels safe at home with her . At this time, awaiting echocardiogram results. Pt states that she was told that she may be going home on Eliquis. This music writer provided the pt with the savings card and informed the pt that this can only be used once. Pt thanks this music writer and denies further needs.
--- NOTE | 2025-04-29 15:38 | NURSING ---
spoke w/ dr. landeros regarding no interpretation of echo today-- he is investigating and will get back to us
--- NOTE | 2025-04-29 18:00 | DCINST_ITS ---
Discharge Instructions DC O2, CPAP, BIPAP needs Home O2 Discharge instructions: No Dressing / Incision Discharge Activity: Return to Normal Activity Weight Bearing Status: Full weight bearing Follow Up Care Test Results: Test results from this visit will be discussed in further detail at your follow- up appointment, if applicable. Discharge Plan Admission Admit Date/Time: 04/28/25 17:16 Primary Reason for Your Visit: New onset atrial fibrillation Attending Provider: Delfino Cody Primary Care Provider: Vianey Cantu Consulting Providers: Loki Olivares Discharge Orders/Prescriptions Prescriptions: New Eliquis 5 mg tablet 5 mg PO BID Qty: 60 0RF Rx Instructions: Start on 04/30/2025 Continued atorvastatin 20 mg tablet 20 mg PO QDAY Patient Comments: TAKE 1 TABLET BY MOUTH ONCE DAILY amlodipine 10 mg tablet 10 mg PO .morning Patient Comments: TAKE 1 TABLET BY MOUTH IN THE MORNING levothyroxine [Synthroid] 88 mcg tablet 88 mcg PO QDAY ascorbic acid (vitamin C) 1,000 mg tablet 1 g PO QDAY multivitamin Tablet 1 tab PO QAM calcium carbonate-vitamin D3 600 mg-5 mcg (200 unit) tablet 1 tab PO QDAY estradiol 0.01 % (0.1 mg/gram) cream 1 g vaginal 2XW lisinopril 20 MG tablet 20 mg PO BID metoprolol succinate 100 MG tablet 100 mg PO QHS amitriptyline 50 mg tablet 50 mg PO QHS Referrals / Follow Up: Vianey Cantu NP-C [Primary Care Provider, Internal Medicine] - Within 1 Month Terry Almazan NP, NP-C [Med Staff - [facility] Practice Prof, Cardiology] - See Referral Note Referral Note: Call the office to make an appointment in 2 weeks to see Terry Almazan for follow-up Disposition Disposition (needs filled in before D/C Order can be placed): Home, Self Care
--- NOTE | 2025-04-29 18:06 | PCM.DC.SUM ---
Providers Date of Admission: 04/28/25 Date of Discharge: 04/29/25 Primary Care Physician: Vianey Cantu, QIAN-C Reason For Visit: AFIB W/ RVR S/P CARDIOVERSION, ELEVATED TROPS Diagnosis Discharge Diagnosis (1) Atrial fibrillation with RVR: Status: Acute Code(s): I48.91 - Unspecified atrial fibrillation (2) Elevated troponin: Status: Acute Code(s): R79.89 - Other specified abnormal findings of blood chemistry Plan 1. New onset atrial fibrillation converted to normal sinus rhythm #2 essential hypertension #3 hyperlipidemia #4 hypothyroidism #5 chronic aortic stenosis-moderate to severe Medications at Discharge Home Medications lisinopril 20 mg tablet 20 mg PO BID 08/23/18 metoprolol succinate 100 mg tablet,extended release 24 hr 100 mg PO QHS 08/23/18 amitriptyline 50 mg tablet 50 mg PO QHS Insomnia 08/19/24 amlodipine 10 mg tablet 10 mg PO .morning 08/19/24 ascorbic acid (vitamin C) 1,000 mg tablet 1 g PO QDAY 08/19/24 atorvastatin 20 mg tablet 20 mg PO QDAY 08/19/24 calcium 600 mg (as carbonate)-vitamin D3 5 mcg (200 unit) tablet 1 tab PO QDAY 08/19/24 levothyroxine 88 mcg tablet (Synthroid) 88 mcg PO QDAY 08/19/24 multivitamin 1 tab PO QAM 08/19/24 estradiol 0.01% (0.1 mg/gram) vaginal cream 1 g vaginal 2XW 09/23/24 apixaban 5 mg tablet (Eliquis) 5 mg PO BID #60 tabs 04/29/25 Hospital Course Operations None Procedures 2-D Echocardiogram Summary of Care Provided Minutes Spent on Discharge: 31 Hospital Course: This 79-year-old white female was seen in the emergency room at [facility] with complaints of dyspnea with exertion and lightheadedness. She also complained of palpitations. Patient also complained of chest tightness while she was in the emergency room. EKG was obtained which showed atrial fibrillation with RVR at about 140, discussions were carried out with the patient concerning cardioversion due to her complaints of chest pain and dyspnea, she agreed to this and the patient was medicated and cardioverted with return to normal sinus rhythm. Chest x-ray showed no acute findings. Patient was placed in observation status in ICU and monitored, she remained in sinus rhythm, she was started on Eliquis and she was maintained on metoprolol which was her home medication. Patient underwent an echocardiogram which showed a normal ejection fraction and moderate to severe aortic stenosis which had been present on a previous echo, this was essentially unchanged from an echo approximately a year prior. On 04/29/2025, patient was seen and examined: On examination she appeared in good health and spirits. Vital signs as documented. Skin warm and dry and without overt rashes. Neck without JVD, neck was supple, trachea midline, thyroid was normal. Lungs clear bilaterally, normal air movement was noted. Heart exam notable for regular rhythm, normal sounds and absence of murmurs, rubs or gallops. Abdomen unremarkable and without evidence of organomegaly, masses, or abdominal aortic enlargement. Bowel sounds are present, abdomen is not distended. Extremities nonedematous, no cyanosis was noted, no clubbing was noted. Neuro: Cranial nerves II through XII are grossly intact, no focal motor deficits were noted, sensation to light touch and pinprick intact, motor exam 5/5 throughout. Psych: Patient is alert and oriented x3, she does not appear anxious or depressed. Patient was discharged home in stable condition on 04/29/2025 Weight / BMI Weight Weight: 85.684 kg Body Mass Index (BMI) 31.4 ABG / Lab / Microbiology Data 04/29/25 04:47 04/29/25 04:47 Laboratory: Laboratory Results - last 24 hr 04/28/25 17:44: D-Dimer Quant (PE/DVT) 0.45, Troponin T Hi Sens 4Hr 82 H* 04/29/25 04:47: WBC 8.4, RBC 4.17 L, Hgb 12.8, Hct 37.5, MCV 89.9, MCH 30.7, MCHC 34.1, RDW Std Deviation 43.2, RDW Coeff of Kev 13.1, Plt Count 313, MPV 9.3, Sodium 137, Potassium 4.5, Chloride 103, Carbon Dioxide 24.5, Anion Gap 10, BUN 14, Creatinine 1.05, Estim Creat Clear Calc 47.73 L, Est GFR (MDRD) Non-Af 54 L, BUN/Creatinine Ratio 13.3, Glucose 102 H, Calcium 9.7 Radiography Diagnostic Testing: Radiology Impression Echocardiogram 04/28/25 17:48 Interpretation Summary Left ventricular systolic function is normal. Normal LV size. The left ventricular ejection fraction is 65 %. Moderate focal aortic valve calcification. Mean aortic valve gradient 33 mmHg. Ordering Physician: Loki Olivares Referring Physician: Vianey Cantu Performed By: Ronnie Hale RDCS D/C Instructions Weight Bearing Status: Full weight bearing DC O2, CPAP, BIPAP Needs Home O2 Discharge instructions: No Meaningful Use Info Meaningful Use Meaningful Use Diagnoses (Choose all that apply): None applicable Discharge Plan Admission Admit Date/Time: 04/28/25 17:16 Primary Reason for Your Visit: New onset atrial fibrillation Attending Provider: Delfino Cody Primary Care Provider: Vianey Cantu Consulting Providers: Loki Olivares Discharge Orders/Prescriptions Prescriptions: New Eliquis 5 mg tablet 5 mg PO BID Qty: 60 0RF Rx Instructions: Start on 04/30/2025 Continued atorvastatin 20 mg tablet 20 mg PO QDAY Patient Comments: TAKE 1 TABLET BY MOUTH ONCE DAILY amlodipine 10 mg tablet 10 mg PO .morning Patient Comments: TAKE 1 TABLET BY MOUTH IN THE MORNING levothyroxine [Synthroid] 88 mcg tablet 88 mcg PO QDAY ascorbic acid (vitamin C) 1,000 mg tablet 1 g PO QDAY multivitamin Tablet 1 tab PO QAM calcium carbonate-vitamin D3 600 mg-5 mcg (200 unit) tablet 1 tab PO QDAY estradiol 0.01 % (0.1 mg/gram) cream 1 g vaginal 2XW lisinopril 20 MG tablet 20 mg PO BID metoprolol succinate 100 MG tablet 100 mg PO QHS amitriptyline 50 mg tablet 50 mg PO QHS Referrals / Follow Up: Vianey Cantu NP-C [Primary Care Provider, Internal Medicine] - Within 1 Month Terry Almazan NP, NP-C [[facility] Staff - [facility], Cardiology] - See Referral Note Referral Note: Call the office to make an appointment in 2 weeks to see Terry Almazan for follow-up Disposition Disposition (needs filled in before D/C Order can be placed): Home, Self Care Charges/Coding Visit Charges Inpatient E&M: 96444 Disch Hosp >30min
== END 2025-04-29 18:25 | disposition home or self-care (01) ==
LOC: ED 17:03 → ICU 17:56
PROVIDERS: Admitting Provider Hospitalist; Emergency Provider Emergency Medicine; PCP Nurse Practitioner Family; Visit Provider Internal Medicine
DX: I48.91 Unspecified atrial fibrillation (principal); N18.31 Chronic kidney disease, stage 3a; R79.89 Other specified abnormal findings of blood chemistry; I35.0 Nonrheumatic aortic (valve) stenosis; I12.9 Hypertensive chronic kidney disease with stage 1 through stage 4 chronic kidney disease, or unspecified chronic kidney disease; E78.00 Pure hypercholesterolemia, unspecified; I25.10 Atherosclerotic heart disease of native coronary artery without angina pectoris; M81.0 Age-related osteoporosis without current pathological fracture; I44.7 Left bundle-branch block, unspecified; E03.9 Hypothyroidism, unspecified; I34.1 Nonrheumatic mitral (valve) prolapse; E66.811 Obesity, class 1; I34.0 Nonrheumatic mitral (valve) insufficiency; I47.10 Supraventricular tachycardia, unspecified; Z79.890 Hormone replacement therapy; Z79.899 Other long term (current) drug therapy; Z68.32 Body mass index [BMI] 32.0-32.9, adult
CPT/HCPCS: 71045; 80048; 83036; 84443; 84484; 85025; 85027; 85379; 93005; 93306; 94668; 99221; 99285; A4216; G0378